=== PATIENT | male | born 1950 | race Caucasian/White ===

== ENCOUNTER 2023-11-14 09:43 | Outpatient (AMB) | payer BC, SELFPAY ==
--- NOTE | 2023-11-14 09:44 | MHC.OFFVIS ---
Vital Signs 11/14/23 09:47 Height 6 ft 3 in Weight 248 lb BMI 31.0 BP 140/70 H Blood Pressure Location Rt brachial Position Sitting Pulse 58 Pulse Source Pulse Oximeter Pulse Oximetry (%) 99 Oxygen Delivery Method Room Air Intake Visit Reasons: ENP-Restless leg syn/muscle twitching - CONF Intake Note: Patient presents for restless leg syndrome. patient has severe twitching and jerking when sitting down Allergies cholecalciferol (vitamin D3) [From Vitamin D3] Allergy (Mild, Verified 11/14/23 09:49) itching Medication List - Last Reconciled 11/14/23 by Stephanie Littlejohn, JAMES albuterol sulfate 90 mcg/actuation 2 puffs inhalation Q6H PRN amlodipine 10 mg PO DAILY cyclobenzaprine 5 mg PO BEDTIME diclofenac sodium 1% (Aleve (diclofenac)) 4 grams topical QID ezetimibe 10 mg PO DAILY hydroxyzine HCl 10 mg PO BEDTIME ibuprofen 800 mg PO Q8H multivitamin 1 tab PO DAILY omeprazole 20 mg PO DAILY ropinirole 1 mg PO BID HPI Comments Details: Right-handed 73-yr-old male presents for neurological evaluation of RLS w/ ? of peripheral neuropathy. Pt is accompanied by his , Meeta. He has had bilateral ankle pain since his 20s. He has very limited ankle ROM. He was tried on Indocin in the past which helped but then this was switched to Ibuprofen. Last yr, he was diagnosed w/ a left ankle MRSA infection- was tx'd w/ course of ABT. He recently retried indocin, but this made him feel very strange and he was switched back to Ibuprofen. Ortho offered ankle fusion, however could not guarantee the pain would resolve. He has a rheumatology consult on 11/29 at [facility]. He has had muscle spasms in the upper inner thighs his whole life. More recently, he has started to have cramps in the calves as well. The cramps occur at rest. Can be triggered by dehydration or increased activity- such as hiking and then sitting down. He previously used quinine, but since quinine 30 yrs ago, became unavailable he started taking OTC Burt leg cramps prn, which helps. (Active Ingredients: Cinchona Officinalis 3X HPUS, Aconitum Napellus 6X HPUS, Gnaphalium Polycephalum 3X HPUS, Ledum Palustre 6X HPUS, Magnesia Phosphorica 6X HPUS, Rhus Toxicodendron 6X HPUS, Viscum Album 3X HPUS). In the past, tried prn Tizanidine, vinegar, mustard, pickle juice- but did not really help. He has always been very active, not prone to sit down for long. He has urge to move, cannot sit still for more than 10-15 minutes- this is more so in the last 3-4 yrs. Then about a year ago, he started having episodes of feeling an electrical shock causing an involuntary leg and now upper body jerking. He can feel creepy crawling sensation across his shoulders. Sometimes his hands carmp at rest. This always occurs at rest, more so in the evening after 7pm, but worse after bedtime. He started ropinirole 2mg an hr before bed, which helps to reduce the jerking motion. However, if he does not fall asleep right away, then he cannot stay laying down in the bed and has to get up and move. Uses Tizanidine prn for back spasms (different from the leg cramps)- helps the back, but not the legs. Tried Gabapentin 100mg qhs- did not tolerate, made him feel weird. He has not tried weighted blanket- worried about his claustrophobia- cannot even watch a movie where someone someone is locked in a closet. He does have milder sleep apnea, but could not tolerate the CPAP mask as he is claustrophobic and has to get up and move. Has difficulties on long plane rides. He can drive longer distances, but does not tolerate being a passenger. Occasionally may have non-radiating low back muscle spasm. He has always been prone to brief lightheadedness after bending over and standing back up. Generally very active- he is currently putting up delacruz/sheet rock. He may talk in his sleep/chatter/chuckle, may swing/push his arms (put does not punch), and once when in [place]- he jumped out of bed and pointed at the floor stating I told you not to do that (this was 3-4 yrs ago, was tired and frustrated before going to bed). States memory is ok, some forgetfulness. Denies numbness, focal weakness (feels overall not a strong as before- can carry 1 sheet of sheet rock not 2), peripheral skin changes, swelling, gait changes, falls, fasciculations, dysphagia, vision changes, tremors, neck pain, h/o compulsive behaviors. Pt reports his father and all his brothers have severe leg cramps at rest as well. His father passed a long time ago- so does not know if his father had jerking motions. None of his brother's have the jerking movements- pt is the oldest. All of his family is very active like he is. 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 [facility] Medical History (Updated 11/14/23 @ 12:21 by JAMES Lima) Joint pain Osteoarthritis Wheezing Diverticulosis of colon H/O esophageal reflux Squamous cell carcinoma of scalp Mitral regurgitation Erectile dysfunction Fatigue Anxiety disorder Skin cancer MARGOTH (obstructive sleep apnea) Peripheral polyneuropathy Restless leg syndrome Surgical History H/O arthroscopy of knee Hx of tonsillectomy Hx of colonoscopy Family History Mother Lung cancer Breast cancer in female Sister Breast cancer in female Social History Alcohol intake: never Patient Tobacco Use Status: Never used Tobacco Review of Systems Const All systems reviewed & are unremarkable except as noted in HPI and below Physical Exam Vital Signs: Last Vital Signs Pulse 58 11/14/23 09:47 BP 140/70 H 11/14/23 09:47 Pulse Ox 99 11/14/23 09:47 Oxygen Delivery Method Room Air 11/14/23 09:47 BMI result Body Mass Index 31.0 Const General: cooperative and no acute distress Orientation/consciousness: patient oriented x3 HEENT Other: Mallampati stage IV w/ acquired absence of tonsils and uvula. Head: Yes normocephalic Resp Effort & Inspection: normal respiratory effort and able to speak in complete sentences Neuro Other: Mild visible left forearm extensor muscle activation at rest- resolved w/ movement. Distal sensation intact No tremor. Finger-nose intact. BUE JANETT initially had poor fluidity, but improved upon pt initiated repeat Mild BUE, more so on right, tightness FFM intact Decreased BLE ankle dorsiflexion, more so on right, w/ alex decreased foot taps. Good stride, steady gait General: patient oriented x3, CN's II-XI intact bilaterally and deep tendon reflexes 2+ bilaterally Gait exam (Neuro): Normal gait present Motor exam (neuro): 5/5 motor strength present throughout Deep tendon reflexes (DTR's): Right triceps reflex intensity grade: 2+, Left triceps reflex intensity grade: 2+, Rt Biceps (C5, C6): 2+, Left biceps reflex intensity grade: 2+, Right brachioradialis reflex intensity grade: 2+, Left brachioradialis reflex intensity grade: 2+, Right patellar reflex intensity grade: 2+ and Left patellar reflex intensity grade: 2+ Psych Appearance: grossly normal Mental Status: mental status grossly normal Speech and movement: Normal speech and movement present Affect: normal affect Attitude: cooperative Thought process: Normal thought process present Thought content: Normal thought content present Insight: Good insight present (Psych) Assessment & Plan Assessment & Plan (1) Restless leg syndrome: Code(s): G25.81 - Restless legs syndrome Category: Medical (2) Muscle spasm: Code(s): M62.838 - Other muscle spasm Category: Medical (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 early s/s of neurodegenerative process though no current tremor, gait changes, significant cognitive changes. Code(s): G47.50 - Parasomnia, unspecified Category: Medical Plan Pt has life long h/o cramps, restless leg s/s, which have exacerbated in the last year following increased ankle pain and left ankle infection. He does have family hx c/w RLS. Pt advised to undergo work-up to assess for common etiologies of worsening RLS s/s and involuntary jerking movements: Labs for common etiologies BUE and BLE EMG/NCS Add Ropinirole IR 0.25mg tab- 1-3 tabs q evening between 6-8pm Continue Ropinirole 2mg qhs May continue OTC Burt leg cramps prn Reviewed common s/e's, such as OH, drowsiness, compulsive behaviors. Continue fluids. Trial adding stretching exercises. Rheumatology consult as scheduled. Future considerations- in-lab PSG, head imaging. Orders: Orders NE electromyogram (EMG) Today F41.9 - Anxiety disorder, unspecified, G25.81 - Restless legs syndrome, M62.838 - Other muscle spasm, R53.83 - Other fatigue NE nerve conduction velocity Today F41.9 - Anxiety disorder, unspecified, G25.81 - Restless legs syndrome, M62.838 - Other muscle spasm, R53.83 - Other fatigue Complete Blood Count Auto Diff Today F41.9 - Anxiety disorder, unspecified, G25.81 - Restless legs syndrome, M19.90 - Unspecified osteoarthritis, unspecified site, M25.50 - Pain in unspecified joint, M62.838 - Other muscle spasm, R53.83 - Other fatigue Ferritin Today F41.9 - Anxiety disorder, unspecified, G25.81 - Restless legs syndrome, M19.90 - Unspecified osteoarthritis, unspecified site, M25.50 - Pain in unspecified joint, M62.838 - Other muscle spasm, R53.83 - Other fatigue Erythrocyte Sedimentation Rate Today F41.9 - Anxiety disorder, unspecified, G25.81 - Restless legs syndrome, M19.90 - Unspecified osteoarthritis, unspecified site, M25.50 - Pain in unspecified joint, M62.838 - Other muscle spasm, R53.83 - Other fatigue TSH reflex Free T4 Today F41.9 - Anxiety disorder, unspecified, G25.81 - Restless legs syndrome, M19.90 - Unspecified osteoarthritis, unspecified site, M25.50 - Pain in unspecified joint, M62.838 - Other muscle spasm, R53.83 - Other fatigue Vitamin B12 and Folate Today F41.9 - Anxiety disorder, unspecified, G25.81 - Restless legs syndrome, M19.90 - Unspecified osteoarthritis, unspecified site, M25.50 - Pain in unspecified joint, M62.838 - Other muscle spasm, R53.83 - Other fatigue Vitamin D 25-OH (D2 and D3) Today F41.9 - Anxiety disorder, unspecified, G25.81 - Restless legs syndrome, M19.90 - Unspecified osteoarthritis, unspecified site, M25.50 - Pain in unspecified joint, M62.838 - Other muscle spasm, R53.83 - Other fatigue IRON PROFILE Today F41.9 - Anxiety disorder, unspecified, G25.81 - Restless legs syndrome, M19.90 - Unspecified osteoarthritis, unspecified site, M25.50 - Pain in unspecified joint, M62.838 - Other muscle spasm, R53.83 - Other fatigue Magnesium Today F41.9 - Anxiety disorder, unspecified, G25.81 - Restless legs syndrome, M19.90 - Unspecified osteoarthritis, unspecified site, M25.50 - Pain in unspecified joint, M62.838 - Other muscle spasm, R53.83 - Other fatigue Comprehensive Met. Panel Today F41.9 - Anxiety disorder, unspecified, G25.81 - Restless legs syndrome, M19.90 - Unspecified osteoarthritis, unspecified site, M25.50 - Pain in unspecified joint, M62.838 - Other muscle spasm, R53.83 - Other fatigue Creatine Kinase Total Today F41.9 - Anxiety disorder, unspecified, G25.81 - Restless legs syndrome, M19.90 - Unspecified osteoarthritis, unspecified site, M25.50 - Pain in unspecified joint, M62.838 - Other muscle spasm, R53.83 - Other fatigue CRP High Sensitivity Today F41.9 - Anxiety disorder, unspecified, G25.81 - Restless legs syndrome, M19.90 - Unspecified osteoarthritis, unspecified site, M25.50 - Pain in unspecified joint, M62.838 - Other muscle spasm, R53.83 - Other fatigue ASHIA Reflex Titer and Pattern Today F41.9 - Anxiety disorder, unspecified, G25.81 - Restless legs syndrome, M19.90 - Unspecified osteoarthritis, unspecified site, M25.50 - Pain in unspecified joint, M62.838 - Other muscle spasm, R53.83 - Other fatigue Rheumatoid Factor Today F41.9 - Anxiety disorder, unspecified, G25.81 - Restless legs syndrome, M19.90 - Unspecified osteoarthritis, unspecified site, M25.50 - Pain in unspecified joint, M62.838 - Other muscle spasm, R53.83 - Other fatigue Medications: New ropinirole between 6-8pm 0.25 - 0.75 mg (1 - 3 x 0.25 mg) PO DAILY 30 days 90 tabs 3RF G25.81 - Restless legs syndrome Coding Level of Care Code New Pt Level 4 (93631) Diagnoses Restless leg syndrome G25.81 Muscle spasm M62.838 Parasomnia G47.50
[2023-11-14 09:47] VITALS: BP 140/70; PULSE 58; O2SAT 99; BMI 31.0
== END 2023-11-14 11:15 | disposition home or self-care (01) ==
PROVIDERS: PCP Internal Medicine; Visit Provider Nurse Practitioner Family
DX: G25.81 Restless legs syndrome (principal); M62.838 Other muscle spasm; G47.50 Parasomnia, unspecified
CPT/HCPCS: 99204

== ENCOUNTER → 2023-11-14 09:43 | Outpatient (BNVA) | payer BC, SELFPAY | PROVIDERS: PCP Internal Medicine; Visit Provider Nurse Practitioner Family ==

== ENCOUNTER 2023-12-19 14:19 | Outpatient (REF) | payer BC, SELFPAY ==
--- NOTE | 2023-12-19 14:27 | EMG_ITS ---
Chief complaint: Patient reports some sort of muscle hyper excitability, described as twitching that starts on the right foot and spreads throughout his body. This has been ongoing for the last 2 years only. Denies any developmental delay or difficulties during childhood. Denies any proximal or distal weakness. Denies numbness. No atrophy seen. Patient reported feeling muscle stiffness/cramps during exam mainly on right buttocks and leg. No fasciculations seen. Reason for referral: Evaluate for myopathy Referred by: Stephanie Littlejohn NP Procedure done: Upper and lower extremities NCS/EMG Precautions and/or limitations: None The limb temperature was monitored continuously and remained between 32-36 degrees C during the performance of the NCS. Nerve Conduction Studies Anti Sensory Summary Table ?Stim Site NR Onset (ms) Norm Onset (ms) Peak (ms) Norm Peak (ms) O-P Amp (?V) Norm O-P Amp Site1 Site2 Delta-0 (ms) Dist (cm) Sam (m/s) Norm Sam (m/s) Right Median Anti Sensory (2nd Digit) Wrist ? 2.9 3.6 <3.6 12.9 >10 Wrist 2nd Digit 2.9 14.0 48 Right Radial Anti Sensory (Thumb) Forearm ? 1.6 2.3 <3.1 10.8 Forearm Thumb 1.6 0.0 Left Sural Anti Sensory (Lat Mall) Calf NR <4.0 >5.0 Calf Lat Mall 14.0 Right Sural Anti Sensory (Lat Mall) Calf NR <4.0 >5.0 Calf Lat Mall 14.0 Right Ulnar Anti Sensory (5th Digit) Wrist ? 2.5 3.5 <3.7 14.7 >15.0 Wrist 5th Digit 2.5 14.0 56 Motor Summary Table ?Stim Site NR Onset (ms) Norm Onset (ms) O-P Amp (mV) Norm O-P Amp iAmp (mV) Amp (1st) (%) Site1 Site2 Delta-0 (ms) Dist (cm) Sam (m/s) Norm Sam (m/s) Right Median Motor (Abd Poll Brev) Wrist ? 4.9 <3.9 4.9 >4.5 6.0 100.0 Elbow Wrist 5.2 27.0 52 >45 Elbow ? 10.1 4.4 5.2 89.8 Right Peroneal Motor (Ext Dig Brev) Ankle ? 4.7 <4.0 1.2 >2.5 1.3 100.0 Ankle Ext Dig Brev 4.7 0.0 B Fib ? 13.4 1.5 1.8 125.0 B Fib Ankle 8.7 36.0 41 >40 Poplt ? 14.7 1.5 1.8 125.0 Poplt B Fib 1.3 6.0 46 >40 Left Tibial Motor (Abd Johns Brev) Ankle ? 4.8 <5 1.6 >2.5 1.7 100.0 Ankle Abd Johns Brev 4.8 0.0 Knee ? 16.0 2.0 2.3 125.0 Knee Ankle 11.2 45.0 40 >40 Right Tibial Motor (Abd Johns Brev) Ankle ? 5.7 <5 1.3 >2.5 1.4 100.0 Ankle Abd Johns Brev 5.7 0.0 Knee ? 17.1 0.5 0.6 38.5 Knee Ankle 11.4 47.0 41 >40 Right Ulnar Motor (Abd Dig Minimi) Wrist ? 3.1 <3.0 8.1 >5 11.1 100.0 B Elbow Wrist 4.3 24.0 56 >45 B Elbow ? 7.4 7.8 11.0 96.3 A Elbow B Elbow 2.0 10.0 50 >45 A Elbow ? 9.4 7.3 10.3 90.1 EMG ?Side Muscle Nerve Root Ins Act Fibs Psw Amp Dur Poly Recrt Int Pat Comment Right 1stDorInt Ulnar C8-T1 Nml Nml Nml Nml Nml 0 Nml Complete Right FlexCarRad Median C6-7 Nml Nml Nml Nml Nml 0 Nml Complete Right Biceps Musculocut C5-6 Nml Nml Nml Nml Nml 0 Nml Complete Right Triceps Radial C6-7-8 Nml Nml Nml Nml Nml 0 Nml Complete Right Deltoid Axillary C5-6 Nml Nml Nml Nml Nml 0 Nml Complete Right AbdHallucis MedPlantar S1-2 Nml Nml Nml Nml Nml 0 Nml Complete Right AntTibialis Dp Br Peron L4-5 Nml Nml Nml Nml Nml 0 Nml Complete Right MedGastroc Tibial S1-2 Nml Nml Nml Nml Nml 0 Nml Complete Right VastusMed Femoral L2-4 Nml Nml Nml Nml Nml 0 Nml Complete Right GluteusMed SupGluteal L4-S1 Nml Nml Nml Nml Nml 0 Nml Complete Left AbdHallucis MedPlantar S1-2 Incr Nml 1+ Nml Nml 0 Nml Complete Left AntTibialis Dp Br Peron L4-5 Nml Nml Nml Nml Nml 0 Nml Complete Left MedGastroc Tibial S1-2 Incr Nml 1+ Nml Nml 0 Nml Complete Left VastusMed Femoral L2-4 Nml Nml Nml Nml Nml 0 Nml Complete Paraspinal EMG ?Side Muscle Nerve Root Ins Act Fibs Psw Comment Right Cervical Upper Rami Nml Nml Nml Right Cervical Mid Rami Incr Nml Nml Myotonic discharge Right Cervical Lower Rami Nml Nml Nml Right Lumbar Upper Rami Nml Nml Nml Right Lumbar Mid Rami Nml Nml Nml Right Lumbar Lower Rami Nml Nml Nml Left Lumbar Upper Rami Nml Nml Nml Left Lumbar Mid Rami Nml Nml Nml Left Lumbar Lower Rami Nml Nml Nml FINDINGS: Right peroneal nerve showed prolonged distal latency, small amplitude and normal conduction velocity. Note that he has flat feet with flat EDB muscle. Right tibial nerve showed prolonged distal latency, small amplitude and normal conduction velocity. Left tibial nerve showed normal distal latency, small amplitude and normal conduction velocity. Bilateral sural nerves absent response. Right median motor nerve showed prolonged distal latency, normal amplitude and normal conduction velocity. Right ulnar motor nerve showed mildly prolonged distal latency, normal amplitude and normal conduction velocity. All other nerves tested were within normal. Concentric needle EMG was performed in selected muscles of the bilateral lower extremities, right upper extremity, lumbar paraspinals and cervical paraspinals. Study revealed signs of electric abnormalities as shown in the table above. Myoclonic discharges seen in right mid cervical paraspinals. Increased insertional activity and PSWs seen on left medial gastrocnemius and right AH. IMPRESSION: 1. This is an abnormal study. 2. Needle EMG showed isolated myotonic-like discharges on right mid cervical paraspinals, and PSWs on left medial gastrocnemius and AH muscles. NCS showed low CMAP amplitudes with normal/mildly prolonged distal latencies. Abnormalities primarily seen on motor nerves tested rather than sensory. Although both sural nerves showed absent response. 3. Although myotonic discharges are nonspecific and can be seen in many disorders, including myotonic dystrophy, inflammatory myopathies, hypothyroidism, drug-induced myopathies and even some inherited myopathies, the presence of myotonic discharges specifically in paraspinals highly suggest acid maltase deficiency/Pompe disease. CLINICAL COMMENT: Further clinical correlation and evaluation recommended. Consider workup for Pompe disease and myopathy. If muscle biopsy to be done, can be done where needle EMG was not performed, i.e. left upper extremity. Thank you for your kind referral. Nyla Majano MD, KALI Board Certified, [place] [employer] and Rehabilitation (ABPMR) Board Certified, [place] Board of Electrodiagnostic Medicine (ABEM) CODIN [phone] x 3 MTDD
== END 2023-12-19 14:20 | disposition home or self-care (01) ==
LOC: HO.NEURO 14:19
PROVIDERS: PCP Internal Medicine; Visit Provider Nurse Practitioner Family
DX: M62.838 Other muscle spasm (principal); G25.81 Restless legs syndrome; F41.9 Anxiety disorder, unspecified; R53.83 Other fatigue
CPT/HCPCS: 95886; 95911

== ENCOUNTER → 2023-12-19 14:27 | Outpatient (BNV) | payer BC, SELFPAY | PROVIDERS: PCP Internal Medicine; Visit Provider Physical Medicine & Rehabilitation | DX: R25.3 Fasciculation (principal); M62.838 Other muscle spasm | CPT/HCPCS: 95886; 95911 ==

== ENCOUNTER 2024-01-25 09:14 | Outpatient (AMB) | payer BC, SELFPAY ==
--- NOTE | 2024-01-25 09:20 | MHC.OFFVIS ---
Vital Signs 01/25/24 09:31 Height 6 ft 3 in Weight 249 lb BMI 31.1 BP 155/73 H Blood Pressure Location Lt brachial Position Sitting Pulse 62 Intake Visit Reasons: Myopathy muscle bx Intake Note: Patient is seen in office for myopathy muscle biopsy. Pt c/o: arthritis in the ankle, muscle spasm all his life, involuntary movements starts at foot radiates to back and shoulder for couple yrs now, had nerve test done Stem Assembler Required: No Accompanied by: Family/Other Allergies cholecalciferol (vitamin D3) [From Vitamin D3] Allergy (Mild, Verified 01/25/24 09:29) itching HPI Comments Details: 73-year-old male patient presenting for evaluation of a possible muscle biopsy. He reports excessive twitching especially in the right foot which spreads throughout his body and has developed over the past 2 years. He had a prior history of muscle cramps for which he takes quinine and restless legs syndrome. He denies numbness or muscle weakness. He does have sharp pain in the right buttock after having a an EMG. An EMG performed on 12/19/2023 revealed myotonic like discharge is on right mid cervical paraspinals. ?Although myotonic discharges are nonspecific and can be seen in many disorders, including myotonic dystrophy, inflammatory myopathies, hypothyroidism, drug-induced myopathies and even some inherited myopathies, the presence of myotonic discharges specifically and paraspinals highly suggest acid maltase deficiency/Pompe disease.? He is most symptomatic in the right inner thigh. Muscle biopsy is recommended where needle EMG was not performed i.e. left upper extremity. [facility] Medical History Joint pain Osteoarthritis Wheezing Diverticulosis of colon H/O esophageal reflux Squamous cell carcinoma of scalp Mitral regurgitation Erectile dysfunction Fatigue Anxiety disorder Skin cancer MARGOTH (obstructive sleep apnea) Peripheral polyneuropathy Restless leg syndrome Surgical History H/O arthroscopy of knee Hx of tonsillectomy Hx of colonoscopy Family History Mother Lung cancer Breast cancer in female Sister Breast cancer in female Social History Alcohol intake: never Patient Tobacco Use Status: Never used Tobacco Review of Systems Const All systems reviewed & are unremarkable except as noted in HPI and below Denies chills, Denies fever(s), Denies headache(s), Denies poor appetite and Denies weakness ENT Denies headache(s) Card Denies chest pain, Denies irregular heart rhythm, Denies palpitations and Denies dyspnea Resp Denies cough, Denies excessive phlegm production and Denies dyspnea GI Denies abdominal pain, Denies bloating, Denies change in bowel habits, Denies constipation, Denies heartburn, Denies diarrhea, Denies nausea and Denies vomiting Denies difficulty urinating and Denies urinary frequency Musc Denies back pain, Reports arthralgias, Denies muscle weakness and Denies numbness Skin/Breast Denies changing lesions and Denies unusual bruising Neuro Denies headache(s), Denies numbness, Reports restless legs, Denies paresthesias and Denies weakness Psych Denies anxiety and Denies depression Endo Denies palpitations Kavin/Lymph Denies lymphadenopathy Physical Exam Const General: cooperative and no acute distress Nutritional Appearance: well nourished Orientation/consciousness: patient oriented x3 Limitations: no limitations HEENT Head: Yes normocephalic and Yes atraumatic Ears: hearing grossly normal bilaterally Resp Effort & Inspection: normal respiratory effort, no audible wheezes, no cough and no respiratory distress Cardio Jugular venous distension: no JVD GI Inspection: Yes normal to inspection Skin Other: Warm, dry, no rash Neuro General: patient oriented x3 Extrem General: Yes no clubbing, cyanosis or edema Assessment & Plan Assessment & Plan (1) Myopathy: Code(s): G72.9 - Myopathy, unspecified Category: Medical Plan 73-year-old male patient with complaints of twitching in the lower extremity right side found to have an abnormal EMG. Muscle biopsy is recommended. Patient is most symptomatic in the right leg especially the thigh. I recommended performing muscle biopsy both of the left upper extremity and right lower extremity. After discussion of the procedure, risks, and alternatives, he consents to the surgery. This will be scheduled at his earliest convenience. Coding Level of Care Code New Pt Level 4 (92564) Diagnoses Myopathy G72.9
[2024-01-25 09:31] VITALS: BP 155/73; PULSE 62; BMI 31.1
== END 2024-01-25 09:48 | disposition home or self-care (01) ==
PROVIDERS: PCP Internal Medicine; Visit Provider Surgery
DX: G72.9 Myopathy, unspecified (principal)
CPT/HCPCS: 99204

== ENCOUNTER → 2024-01-25 09:14 | Outpatient (BNVA) | payer BC, SELFPAY | PROVIDERS: PCP Internal Medicine; Visit Provider Surgery ==

== ENCOUNTER 2024-02-27 05:50 | Day surgery (SDC) | payer MEDICARE, SELFPAY ==
[2024-02-25 09:20] VITALS: BMI 31.1
--- NOTE | 2024-02-26 08:44 | HO.ANESPROP2 ---
Documented by User: Joleen Michel NP 02/26/24 08:49 HPI - Anesthesia Eval Consult details Narrative: 73yo M for Muscle Biopsy Left Arm and Right Thigh Cardiac optimized. Follows [facility] for mild mitral insufficiency, mild AAA PMFSH Active Problems Active Problems: All Active Problems Myopathy (Acute) Parasomnia (Acute) Muscle spasm (Acute) Fatigue (Acute) Anxiety disorder (Acute) Restless leg syndrome (Acute) Past Medical History Medical History GERD (gastroesophageal reflux disease) MARGOTH (obstructive sleep apnea) Asthma Erectile dysfunction Mild mitral insufficiency Mild ascending aorta dilation Hyperlipidemia Hypertension Joint pain Osteoarthritis Wheezing Diverticulosis of colon H/O esophageal reflux Squamous cell carcinoma of scalp Mitral regurgitation Fatigue Anxiety disorder Skin cancer Peripheral polyneuropathy Restless leg syndrome Family History Family History Mother Lung cancer Breast cancer in female Sister Breast cancer in female Surgical History Surgical History H/O arthroscopy of knee Hx of tonsillectomy Hx of colonoscopy Social History Social History Alcohol intake: never Patient Tobacco Use Status: Never used Tobacco Have you been hit, kicked, punched, or otherwise hurt by someone within the past year? If so, by whom?: No Advance Directives: No Advance Directives Information Provided: Yes Nutrition Risks: No Nutritional Risk Meds Allergies Allergy/AdvReac Type Severity Reaction Status Date / Time cholecalciferol (vitamin D3) Allergy Mild itching Verified 01/25/24 09:29 [From Vitamin D3] Home Medications ?Medication ?Instructions ?Recorded ?Confirmed ?Last Taken ?Type albuterol sulfate 90 mcg/actuation 2 puff inhalation Q6H PRN sob 11/14/23 02/27/24 02/26/22 History aerosol inhaler amlodipine 10 mg tablet 10 mg PO DAILY 11/14/23 02/27/24 02/27/24 History cyclobenzaprine 5 mg tablet 5 mg PO BEDTIME 11/14/23 02/27/24 02/26/24 History ezetimibe 10 mg tablet 10 mg PO DAILY 11/14/23 02/27/24 02/26/24 History hydroxyzine HCl 10 mg tablet 10 mg PO BEDTIME 11/14/23 02/27/24 02/26/24 History multivitamin 1 tab PO DAILY 11/14/23 02/27/24 02/26/24 History omeprazole 20 mg capsule,delayed 20 mg PO DAILY 11/14/23 02/27/24 02/26/24 History release ropinirole 1 mg tablet 1 mg PO BID 11/14/23 02/27/24 02/26/24 History Exam Height,Weight and Vital Signs: Height 6 ft 3 in Weight 112.945 kg Pertinent Lab Results Pertinent Lab Results: CBC and BMP 09/2023 from outside facility WNL Narrative Narrative: ECHO 02/2024 LV mildly dilated LV sys function nml, EF 55-60% No regional WMA Mild concentric LVH RV cavity nml RV sys function nml Asc aorta dilated 3.9cm EKG 02/2024 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 Mod volt criteria for LVH Assessment and Plan Assessment Anesthesia Assessment: Chart Reviewed Documented by User: Malika Campos MD 02/27/24 07:47 PMFSH Past Medical History Medical History GERD (gastroesophageal reflux disease) MARGOTH (obstructive sleep apnea) Asthma Erectile dysfunction Mild mitral insufficiency Mild ascending aorta dilation Hyperlipidemia Hypertension Joint pain Osteoarthritis Wheezing Diverticulosis of colon H/O esophageal reflux Squamous cell carcinoma of scalp Mitral regurgitation Fatigue Anxiety disorder Skin cancer Peripheral polyneuropathy Restless leg syndrome Family History Family History Mother Lung cancer Breast cancer in female Sister Breast cancer in female Family history of problems with anesthesia: No Surgical History Surgical History H/O arthroscopy of knee Hx of tonsillectomy Hx of colonoscopy History of Problems with Anesthesia: No Social History Social History Alcohol intake: never Patient Tobacco Use Status: Never used Tobacco Have you been hit, kicked, punched, or otherwise hurt by someone within the past year? If so, by whom?: No Advance Directives: No Advance Directives Information Provided: Yes Nutrition Risks: No Nutritional Risk Meds Allergies Allergy/AdvReac Type Severity Reaction Status Date / Time cholecalciferol (vitamin D3) Allergy Mild itching Verified 01/25/24 09:29 [From Vitamin D3] Home Medications ?Medication ?Instructions ?Recorded ?Confirmed ?Last Taken ?Type albuterol sulfate 90 mcg/actuation 2 puff inhalation Q6H PRN sob 11/14/23 02/27/24 02/26/22 History aerosol inhaler amlodipine 10 mg tablet 10 mg PO DAILY 11/14/23 02/27/24 02/27/24 History cyclobenzaprine 5 mg tablet 5 mg PO BEDTIME 11/14/23 02/27/24 02/26/24 History ezetimibe 10 mg tablet 10 mg PO DAILY 11/14/23 02/27/24 02/26/24 History hydroxyzine HCl 10 mg tablet 10 mg PO BEDTIME 11/14/23 02/27/24 02/26/24 History multivitamin 1 tab PO DAILY 11/14/23 02/27/24 02/26/24 History omeprazole 20 mg capsule,delayed 20 mg PO DAILY 11/14/23 02/27/24 02/26/24 History release ropinirole 1 mg tablet 1 mg PO BID 11/14/23 02/27/24 02/26/24 History Exam Airway Mallampati Class: II TM Dist: >3cm Neck ROM: Full Heart: rrr Lungs: cta Assessment and Plan Assessment Anesthesia Assessment: Anesthesia Plan Discussed Final Anesthetic Review Family History of Problems with Anesthesia: No History of Problems with Anesthesia: No NPO: Yes ASA Class: III Final Preanesthetic Review: No Changes in Pt Med Stat, Meds/Allgs Chart Reviewed, Consent Obtained/Reviewed and Anes Risks/Benef Reviewed Patient Risk: Low Procedure Risk: Low Anesthetic Plan Anesthetic Plan: MAC: Disposition: Standard PACU
[2024-02-27 06:05] VITALS: BP 150/78; PULSE 74; RESP 18; TEMP 36.9; O2SAT 96; BMI 31.3
[2024-02-27] MEDS: Lactated Ringers 1,000 ML 100 ML IVCONT (06:58)
--- NOTE | 2024-02-27 07:29 | MHC.SHP ---
Pre-Procedural Eval Section A - 24 Hr Update-Section A only Date of Service: 02/27/24 The patient is an INPATIENT: No Changes since office visit: Yes Patient answered all questions; No Cold of Flu in the past 2 weeks, No New Medical Problems and No Changes in Medication The patient has been examined within 24 hours of the surgical procedure. The History & Physical has been completed within 30 days and I have reviewed it.: No Section B - Complete if H&P > 30 days Chief Complaint: Myopathy, unspecified Details of Present Illness: No change in symptoms Relevant Family History (Specify if Yes): No Relevant Social History: None Present Medications: see Short Stay Collaborative assessment Medical History: No relevant PMH History of Previous Operations: No relevant previous surgery Allergies: Allergies Allergy/AdvReac Type Severity Reaction Status Date / Time cholecalciferol (vitamin D3) Allergy Mild itching Verified 01/25/24 09:29 [From Vitamin D3] Review of Systems Sugical H&P ROS: Negative: Constitution, Cardiovascular, Respiratory, Neurological, Psychiatric, Hem-Onc, Allergic/Immunologic, Gastrointestinal, Genitourinary, Musculoskeletal, Integumentary, Endocrine and Eyes/Ears/Nose/Throat Exam Surgical H&P Exam: Normal: HEENT, Normal: Heart, Normal: Lungs, Normal: Extremities, Normal: Abdomen, Normal: Skin and Normal: Neurological Plan Diagnosis/Plan: Unchanged I have reviewed the history and physical and performed a pertinent physical examination on my patient. No changes have occurred unless specified. Time Spent With Patient Time: Total time managing care of this patient today ____ minutes.
--- NOTE | 2024-02-27 08:28 | P.OP_ITS ---
Operative Note Operative Note Date of Service: 02/27/24 Narrative: Preoperative diagnosis: Myopathy Postoperative diagnosis: Same Procedure: Muscle biopsy right thigh, left upper arm Surgeon: Mamadou Garrison MD Chassis Mechanic: Tami Otero PA-C Anesthesia: Mac plus local Indications for procedure: 73-year-old male patient presenting with complaints of twitching in the right leg suspected to have a myopathy. He presents today for muscle biopsy. Operative findings: Normal appearing muscle at both the left upper arm and right inner thigh Specimen: Muscle biopsy left upper arm and right upper inner thigh Estimated blood loss: 2 mL Complications: None Procedure details: Patient was brought to the OR and placed in a supine position. After administering light sedation the patient's left upper arm and right inner thigh was prepped with ChloraPrep and draped in a sterile fashion. A surgical time-out was called the consent confirmed. Patient received preoperative antibiotics and Venodyne boots were in place. Local anesthesia was infiltrated over the lateral right upper arm over the triceps. Incision was then made longitudinally carried out through subcutaneous tissue, through the fascia up to the muscle belly. A segment of muscle was isolated using a hemostat and cut using a Metzenbaum scissors. This was placed in a muscle biopsy clamp and sent fresh to pathology for further examination. Fascia was then reapproximated using interrupted 3-0 Polysorb sutures. Attention was then directed to the upper inner thigh right side were again local anesthesia was infiltrated in longitudinal fashion. A longitudinal incision was then made carried out through subcutaneous tissue up to the muscle fascia. This was then incised with a scalpel. Muscle belly was then exposed. A segment of muscle was isolated similar to the previous biopsy. This was cut with the Metzenbaum scissors and placed in a muscle biopsy clamp. Wounds were then checked for hemostasis. Muscle fascia was then closed using interrupted 3-0 Polysorb sutures. Dermis was reapproximated in both incisions using interrupted 3-0 Polysorb sutures. Skin was closed using a running subcuticular 4-0 Polysorb suture. Sterile dressings consisting of Steri-Strips, 2 x 2 gauze and Tegaderm were then applied. The patient tolerated the procedure well. Sponge, instrument, and needle counts reported as correct. The patient was transferred to PACU in stable condition.
[2024-02-27 08:34] VITALS: BP 125/66; PULSE 75; RESP 16; TEMP 36.8; O2SAT 98
[2024-02-27 08:49] VITALS: BP 141/76; PULSE 65; RESP 16; O2SAT 97
[2024-02-27 09:05] VITALS: BP 134/71; PULSE 56; RESP 16; TEMP 36.9; O2SAT 99
== END 2024-02-27 09:30 | disposition home or self-care (01) ==
PROVIDERS: Visit Provider Surgery
PROC: (CPT 20205; principal; 2024-02-27 07:30)
DX: G72.9 Myopathy, unspecified (principal); M62.838 Other muscle spasm; G25.81 Restless legs syndrome; G62.9 Polyneuropathy, unspecified; R53.83 Other fatigue; C44.42 Squamous cell carcinoma of skin of scalp and neck; G47.33 Obstructive sleep apnea (adult) (pediatric); J45.909 Unspecified asthma, uncomplicated; I10 Essential (primary) hypertension; E78.5 Hyperlipidemia, unspecified; F41.9 Anxiety disorder, unspecified; Z79.899 Other long term (current) drug therapy; Z88.8 Allergy status to other drugs, medicaments and biological substances
CPT/HCPCS: 20205 ×2; 88300; 88305; 88313; 88319; 88348; J0690; J2003; J2405; J2704; J2795; J3010

== ENCOUNTER → 2024-02-27 05:50 | Outpatient (BNV) | payer MEDICARE, SELFPAY | PROVIDERS: Visit Provider Surgery | DX: G72.9 Myopathy, unspecified (principal) | CPT/HCPCS: 20205 ==

== ENCOUNTER 2024-03-07 10:32 | Outpatient (AMB) | payer BC, SELFPAY ==
--- NOTE | 2024-03-07 10:55 | MHC.OFFVIS ---
Vital Signs 03/07/24 11:01 Height 6 ft 3 in Weight 249 lb 1.957 oz BMI 31.1 Pulse 60 Intake Visit Reasons: s/p muscle biopsy left arm, rt thigh Intake Note: Patient is seen in office for post op assessment post muscle biopsy right thigh, left upper arm. Pt c/o: admits to sore and bruise all over the right leg surgery:02/27/24 [employer] Required: No Accompanied by: Spouse Allergies cholecalciferol (vitamin D3) [From Vitamin D3] Allergy (Mild, Verified 03/07/24 11:03) itching HPI Comments Details: 73-year-old male patient returning following muscle biopsy of right medial calf and left upper arm for evaluation of a possible myopathy. He reports swelling in the right leg wound with extensive bruising down the leg but denies any significant swelling or bruising in the left arm. Pathology revealed normal muscle at both the biopsy sites. A copy of the report was provided to the patient. [facility] Medical History GERD (gastroesophageal reflux disease) MARGOTH (obstructive sleep apnea) Asthma Erectile dysfunction Mild mitral insufficiency Mild ascending aorta dilation Hyperlipidemia Hypertension Joint pain Osteoarthritis Wheezing Diverticulosis of colon H/O esophageal reflux Squamous cell carcinoma of scalp Mitral regurgitation Fatigue Anxiety disorder Skin cancer Peripheral polyneuropathy Restless leg syndrome Surgical History History of biopsy (02/27/24) H/O arthroscopy of knee Hx of tonsillectomy Hx of colonoscopy Family History Mother Lung cancer Breast cancer in female Sister Breast cancer in female Social History Alcohol intake: never Patient Tobacco Use Status: Never used Tobacco Physical Exam Vital Signs: Last Vital Signs Pulse 60 03/07/24 11:01 BMI result Body Mass Index 31.1 Const General: no acute distress Nutritional Appearance: well nourished Orientation/consciousness: patient oriented x3 Resp Effort & Inspection: normal respiratory effort, no audible wheezes, no cough and no respiratory distress Neuro General: patient oriented x3 Extrem Other: Left arm wound clean, dry, and intact without hematoma or seroma. Right upper inner thigh with a subcutaneous hematoma apparent with no significant skin changes noted. Ecchymosis noted extending down the posterior and distal leg. No evidence of infection. Upper/lower leg/hip images: 1. Area of hematoma Assessment & Plan Assessment & Plan (1) Myopathy: Code(s): G72.9 - Myopathy, unspecified Category: Medical Plan 73-year-old male patient presenting with possible myopathy status post muscle biopsy x2. Pathology from [facility] revealed no abnormalities in either muscle biopsy. The patient tolerated the procedure well and his wounds are healing nicely. There is a small hematoma residual in the right leg which will resolve spontaneously. He should follow up as needed. Coding Level of Care Code Global (45299) Diagnoses Myopathy G72.9
[2024-03-07 11:01] VITALS: PULSE 60; BMI 31.1
== END 2024-03-07 11:17 | disposition home or self-care (01) ==
PROVIDERS: PCP Internal Medicine; Visit Provider Surgery
DX: G72.9 Myopathy, unspecified (principal)
CPT/HCPCS: 99213

== ENCOUNTER 2024-05-27 11:12 | Outpatient (AMB) | payer BC, SELFPAY ==
--- NOTE | 2024-05-27 11:24 | A.OFFVIS_ITS ---
Vital Signs 05/27/24 11:24 05/27/24 11:33 Height 63 ft 6 ft 3 in Weight 251 lb 250 lb BMI 0.3 31.2 BP 142/60 H Blood Pressure Location Rt brachial Position Sitting Pulse 80 Pulse Source Pulse Oximeter Pulse Oximetry (%) 96 Oxygen Delivery Method Room Air Intake Visit Reasons: 6mo F/U Intake Note: Patient presents follow up RLS. EMG in chart/Labs not done Assembly Inspector Helper Required: No Allergies cholecalciferol (vitamin D3) [From Vitamin D3] Allergy (Mild, Verified 03/07/24 11:03) itching Medication List - Last Reconciled 05/27/24 by Stephanie Littlejohn, DIRECTOR OF PARKS AND RECREATION albuterol sulfate 90 mcg/actuation 2 puffs inhalation Q6H PRN amlodipine 5 mg PO DAILY aspirin 81 mg PO DAILY cyclobenzaprine 5 mg PO BEDTIME diclofenac sodium 75 mg PO BID ezetimibe 10 mg PO DAILY hydroxyzine HCl 10 mg PO BEDTIME losartan 25 mg PO DAILY multivitamin 1 tab PO DAILY omeprazole 20 mg PO DAILY ropinirole 1 mg PO BID ropinirole 0.25 - 0.75 mg (1 - 3 x 0.25 mg) PO DAILY 30 days ticagrelor (Brilinta) 90 mg PO BID HPI Comments Details: The patient is a 73-year-old right-handed male presenting with neuropathy symptoms and restless legs syndrome. He experienced a myocardial infarction that required intervention with coronary stents in April and has since been partaking in cardiac rehabilitation. His CV medication regimen was optimized, he is now on Brilinta. Note, patient continues on diclofenac states he was not advise to hold this. He has an appointment Sunday with cardiology- I advised him to discuss if he can continue to take these concomitantly with cardiology. Since the last visit, patient underwent BUE/BLE EMG/ NCS which was abnormal- which showed isolated myotonic like discharges on right mid cervical paraspinals and PSWs on left medial gastrocnemius and AH muscles. NCS showed low CMAP amplitudes with normal/mildly prolonged distal latencies. Abnormalities primarily seen on motor nerves tested rather than sensory- though both sural nerves showed absent response. Performing screen printing paster recommended patient undergo follow-up muscle biopsy to rule out myopathic process. Muscle biopsy ruled out inflammatory or autoimmune causes. He notes particular sensitivity at the biopsy site, which has improved over time. He states that he did do the blood work that we previously ordered, however I do not have these results today. We will request them. He describes his neuropathy involves significant concerns about jerking leg movements and soreness would start in the feet and move up the body, more so on the right side. These symptoms occur predominantly post-supper in the evenings, which interfere with rest. for instance, he often needs to stand while watching TV in the evening. He may occasionally have these symptoms earlier day when at rest. These symptoms are partially managed with the added doses of ropinirole, although it does not fully alleviate them. He did see Rheumatology, who did not feel his symptoms were rheumatological, although he does have osteoarthritis. Rheumatology suggested he discuss with us trialing gabapentin or pregabalin. Patient reports he has previously tried gabapentin without success due to side effects and is considering pregabalin as an alternate option for symptom management. 11/14/2023. Right-handed 73-yr-old male presents for neurological evaluation of RLS w/ ? of peripheral neuropathy. Pt is accompanied by his , Meeta. He has had bilateral ankle pain since his 20s. He has very limited ankle ROM. He was tried on Indocin in the past which helped but then this was switched to Ibuprofen. Last yr, he was diagnosed w/ a left ankle MRSA infection- was tx'd w/ course of ABT. He recently retried indocin, but this made him feel very strange and he was switched back to Ibuprofen. Ortho offered ankle fusion, however could not guarantee the pain would resolve. He has a rheumatology consult on 11/29 at [facility]. He has had muscle spasms in the upper inner thighs his whole life. More recently, he has started to have cramps in the calves as well. The cramps occur at rest. Can be triggered by dehydration or increased activity- such as hiking and then sitting down. He previously used quinine, but since quinine 30 yrs ago, became unavailable he started taking OTC [place] leg cramps prn, which helps. (Active Ingredients: Cinchona Officinalis 3X HPUS, Aconitum Napellus 6X HPUS, Gnaphalium Polycephalum 3X HPUS, Ledum Palustre 6X HPUS, Magnesia Phosphorica 6X HPUS, Rhus Toxicodendron 6X HPUS, Viscum Album 3X HPUS). In the past, tried prn Tizanidine, vinegar, mustard, pickle juice- but did not really help. He has always been very active, not prone to sit down for long. He has urge to move, cannot sit still for more than 10-15 minutes- this is more so in the last 3-4 yrs. Then about a year ago, he started having episodes of feeling an electrical shock causing an involuntary leg and now upper body jerking. He can feel creepy crawling sensation across his shoulders. Sometimes his hands carmp at rest. This always occurs at rest, more so in the evening after 7pm, but worse after bedtime. He started ropinirole 2mg an hr before bed, which helps to reduce the jerking motion. However, if he does not fall asleep right away, then he cannot stay laying down in the bed and has to get up and move. Uses Tizanidine prn for back spasms (different from the leg cramps)- helps the back, but not the legs. Tried Gabapentin 100mg qhs- did not tolerate, made him feel weird. He has not tried weighted blanket- worried about his claustrophobia- cannot even watch a movie where someone someone is locked in a closet. He does have milder sleep apnea, but could not tolerate the CPAP mask as he is claustrophobic and has to get up and move. Has difficulties on long plane rides. He can drive longer distances, but does not tolerate being a passenger. Occasionally may have non-radiating low back muscle spasm. He has always been prone to brief lightheadedness after bending over and standing back up. Generally very active- he is currently putting up delacruz/sheet rock. He may talk in his sleep/chatter/chuckle, may swing/push his arms (put does not punch), and once when in [place]- he jumped out of bed and pointed at the floor stating I told you not to do that (this was 3-4 yrs ago, was tired and frustrated before going to bed). States memory is ok, some forgetfulness. Denies numbness, focal weakness (feels overall not a strong as before- can carry 1 sheet of sheet rock not 2), peripheral skin changes, swelling, gait changes, falls, fasciculations, dysphagia, vision changes, tremors, neck pain, h/o compulsive behaviors. Pt reports his father and all his brothers have severe leg cramps at rest as well. His father passed a long time ago- so does not know if his father had jerking motions. None of his brother's have the jerking movements- pt is the oldest. All of his family is very active like he is. 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 [facility] Medical History GERD (gastroesophageal reflux disease) MARGOTH (obstructive sleep apnea) Asthma Erectile dysfunction Mild mitral insufficiency Mild ascending aorta dilation Hyperlipidemia Hypertension Joint pain Osteoarthritis Wheezing Diverticulosis of colon H/O esophageal reflux Squamous cell carcinoma of scalp Mitral regurgitation Fatigue Anxiety disorder Skin cancer Peripheral polyneuropathy Restless leg syndrome Surgical History History of biopsy (02/27/24) H/O arthroscopy of knee Hx of tonsillectomy Hx of colonoscopy Family History Mother Lung cancer Breast cancer in female Sister Breast cancer in female Social History Alcohol intake: never Patient Tobacco Use Status: Never used Tobacco Physical Exam Vital Signs: Last Vital Signs Pulse 80 05/27/24 11:33 BP 142/60 H 05/27/24 11:33 Pulse Ox 96 05/27/24 11:33 Oxygen Delivery Method Room Air 05/27/24 11:33 BMI result Body Mass Index 31.2 Const General: cooperative and no acute distress Orientation/consciousness: patient oriented x3 HEENT Other: Mallampati stage IV w/ acquired absence of tonsils and uvula. Head: Yes normocephalic Resp Effort & Inspection: normal respiratory effort and able to speak in complete sentences Neuro Other: No visible left forearm extensor muscle activation noted today Distal sensation intact No tremor. Mild BUE, more so on right, tightness Decreased BLE ankle dorsiflexion, more so on right, w/ alex decreased foot taps. Good stride, steady gait General: patient oriented x3, CN's II-XI intact bilaterally and deep tendon reflexes 2+ bilaterally Gait exam (Neuro): Normal gait present Motor exam (neuro): 5/5 motor strength present throughout Deep tendon reflexes (DTR's): Right triceps reflex intensity grade: 2+, Left triceps reflex intensity grade: 2+, Rt Biceps (C5, C6): 2+, Left biceps reflex intensity grade: 2+, Right brachioradialis reflex intensity grade: 2+, Left brachioradialis reflex intensity grade: 2+, Right patellar reflex intensity grade: 2+ and Left patellar reflex intensity grade: 2+ Psych Appearance: grossly normal Mental Status: mental status grossly normal Speech and movement: Normal speech and movement present Affect: normal affect Attitude: cooperative Thought process: Normal thought process present Thought content: Normal thought content present Insight: Good insight present (Psych) Results Reviewed Results Reviewed: 12/19/2023, bilateral upper and lower extremity EMG/NCS IMPRESSION: 1. This is an abnormal study. 2. Needle EMG showed isolated myotonic-like discharges on right mid cervical paraspinals, and PSWs on left medial gastrocnemius and AH muscles. NCS showed low CMAP amplitudes with normal/mildly prolonged distal latencies. Abnormalities primarily seen on motor nerves tested rather than sensory. Although both sural nerves showed absent response. 3. Although myotonic discharges are nonspecific and can be seen in many disorders, including myotonic dystrophy, inflammatory myopathies, hypothyroidism, drug-induced myopathies and even some inherited myopathies, the presence of myotonic discharges specifically in paraspinals highly suggest acid maltase deficiency/Pompe disease. CLINICAL COMMENT: Further clinical correlation and evaluation recommended. Consider workup for Pompe disease and myopathy. If muscle biopsy to be done, can be done where needle EMG was not performed, i.e. left upper extremity. Assessment & Plan Assessment & Plan (1) Restless leg syndrome: Comment: Pt has life long h/o cramps, restless leg s/s, which have exacerbated in the last year following increased ankle pain and left ankle infection. He does have family hx c/w RLS. Code(s): G25.81 - Restless legs syndrome Category: Medical (2) Muscle spasm: Code(s): M62.838 - Other muscle spasm Category: Medical (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 early s/s of neurodegenerative process though no current tremor, gait changes, significant cognitive changes. Code(s): G47.50 - Parasomnia, unspecified Category: Medical (4) Myopathy: Code(s): G72.9 - Myopathy, unspecified Category: Medical (5) Peripheral neuropathy: Code(s): G62.9 - Polyneuropathy, unspecified Category: Medical Plan Follow-up with cardiology as scheduled- again discuss use of diclofenac in setting of Brilinta tx. We will request previously ordered lab results from [facility]. Reviewed BUE and BLE EMG/NCS- abnormal study as above, Follow-up muscle biopsy negative for myopathic or inflammatory process. Information shared with patient on patient education resources to reduce RLS symptoms, such as ?navigating life with restless leg syndrome? by Dr. Almaraz. Trial pregabalin 25 mg p.o. t.i.d.- take between 17:00 and bedtime. Reviewed common side effects pregabalin, patient will call with any untoward effects. Continue Ropinirole IR 0.25mg tab- 1-3 tabs q evening between 6-8pm Continue Ropinirole 2mg qhs May continue OTC [place] leg cramps prn Continue drinking fluids liberally .. Stretching exercises as tolerated. Previous medication trials- gabapentin not tolerated- did not feel right, irritability, itching. Future considerations- in-lab PSG, head imaging. Addendum- able to review [facility] labs- additional labs ordered to round-out lab work-up- upon review of lab resultss- consider holding OTC [place] leg cramp tx. Orders: Orders Protein Electrophoresis, Serum 05/27/24 G72.9 - Myopathy, unspecified, G62.9 - Polyneuropathy, unspecified, M62.838 - Other muscle spasm, D64.9 - Anemia, unspecified, E55.9 - Vitamin D deficiency, unspecified, I21.4 - Non-ST elevation (NSTEMI) myocardial infarction, I25.10 - Atherosclerotic heart disease of [place] coronary artery without angina pectoris, Z95.5 - Presence of coronary angioplasty implant and graft Protein Electrophoresis 24HrUr 05/27/24 G72.9 - Myopathy, unspecified, G62.9 - Polyneuropathy, unspecified, M62.838 - Other muscle spasm, D64.9 - Anemia, unspecified, E55.9 - Vitamin D deficiency, unspecified, I21.4 - Non-ST elevation (NSTEMI) myocardial infarction, I25.10 - Atherosclerotic heart disease of [place] coronary artery without angina pectoris, Z95.5 - Presence of coronary angioplasty implant and graft Creatine Kinase Total 05/27/24 G72.9 - Myopathy, unspecified, G62.9 - Polyneuropathy, unspecified, M62.838 - Other muscle spasm, D64.9 - Anemia, unspecified, E55.9 - Vitamin D deficiency, unspecified, I21.4 - Non-ST elevation (NSTEMI) myocardial infarction, I25.10 - Atherosclerotic heart disease of [place] coronary artery without angina pectoris, Z95.5 - Presence of coronary angioplasty implant and graft CRP High Sensitivity 05/27/24 G72.9 - Myopathy, unspecified, G62.9 - Polyneuropathy, unspecified, M62.838 - Other muscle spasm, D64.9 - Anemia, unspecified, E55.9 - Vitamin D deficiency, unspecified, I21.4 - Non-ST elevation (NSTEMI) myocardial infarction, I25.10 - Atherosclerotic heart disease of [place] coronary artery without angina pectoris, Z95.5 - Presence of coronary angioplasty implant and graft Rheumatoid Factor 05/27/24 G72.9 - Myopathy, unspecified, G62.9 - Polyneuropathy, unspecified, M62.838 - Other muscle spasm, D64.9 - Anemia, unspecified, E55.9 - Vitamin D deficiency, unspecified, I21.4 - Non-ST elevation (NSTEMI) myocardial infarction, I25.10 - Atherosclerotic heart disease of [place] coronary artery without angina pectoris, Z95.5 - Presence of coronary angioplasty implant and graft Vitamin B12 and Folate 05/27/24 G72.9 - Myopathy, unspecified, G62.9 - Poly neuropathy, unspecified, M62.838 - Other muscle spasm, D64.9 - Anemia, unspecified, E55.9 - Vitamin D deficiency, unspecified, I21.4 - Non-ST elevation (NSTEMI) myocardial infarction, I25.10 - Atherosclerotic heart disease of [place] coronary artery without angina pectoris, Z95.5 - Presence of coronary angioplasty implant and graft Ferritin 05/27/24 G72.9 - Myopathy, unspecified, G62.9 - Polyneuropathy, unspecified, M62.838 - Other muscle spasm, D64.9 - Anemia, unspecified, E55.9 - Vitamin D deficiency, unspecified, I21.4 - Non-ST elevation (NSTEMI) myocardial infarction, I25.10 - Atherosclerotic heart disease of [place] coronary artery without angina pectoris, Z95.5 - Presence of coronary angioplasty implant and graft Methylmalonic Acid 05/27/24 G72.9 - Myopathy, unspecified, G62.9 - Polyneuropathy, unspecified, M62.838 - Other muscle spasm, D64.9 - Anemia, unspecified, E55.9 - Vitamin D deficiency, unspecified, I21.4 - Non-ST elevation (NSTEMI) myocardial infarction, I25.10 - Atherosclerotic heart disease of [place] coronary artery without angina pectoris, Z95.5 - Presence of coronary angioplasty implant and graft Vitamin D 25-OH (D2 and D3) 05/27/24 G72.9 - Myopathy, unspecified, G62.9 - Polyneuropathy, unspecified, M62.838 - Other muscle spasm, D64.9 - Anemia, unspecified, E55.9 - Vitamin D deficiency, unspecified, I21.4 - Non-ST elevation (NSTEMI) myocardial infarction, I25.10 - Atherosclerotic heart disease of [place] coronary artery without angina pectoris, Z95.5 - Presence of coronary angio plasty implant and graft Complete Blood Count Auto Diff 05/27/24 G72.9 - Myopathy, unspecified, G62.9 - Polyneuropathy, unspecified, M62.838 - Other muscle spasm, D64.9 - Anemia, unspecified, E55.9 - Vitamin D deficiency, unspecified, I21.4 - Non-ST elevation (NSTEMI) myocardial infarction, I25.10 - Atherosclerotic heart disease of [place] coronary artery without angina pectoris, Z95.5 - Presence of coronary angioplasty implant and graft Comprehensive Met. Panel 05/27/24 G72.9 - Myopathy, unspecified, G62.9 - Polyneuropathy, unspecified, M62.838 - Other muscle spasm, D64.9 - Anemia, unspecified, E55.9 - Vitamin D deficiency, unspecified, I21.4 - Non-ST elevation (NSTEMI) myocardial infarction, I25.10 - Atherosclerotic heart disease of [place] coronary artery without angina pectoris, Z95.5 - Presence of coronary angioplasty implant and graft Hemoglobin A1c 05/27/24 G72.9 - Myopathy, unspecified, G62.9 - Polyneuropathy, unspecified, M62.838 - Other muscle spasm, D64.9 - Anemia, unspecified, E55.9 - Vitamin D deficiency, unspecified, I21.4 - Non-ST elevation (NSTEMI) myocardial infarction, I25.10 - Atherosclerotic heart disease of [place] coronary artery without angina pectoris, Z95.5 - Presence of coronary angioplasty implant and graft Other [facility] 05/27/24 G72.9 - Myopathy, unspecified, G62.9 - Polyneuropathy, unspecified, M62.838 - Other muscle spasm, D64.9 - Anemia, unspecified, E55.9 - Vitamin D deficiency, unspecified, I21.4 - Non-ST elevation (NSTEMI) myocardial infarction, I25.10 - Atherosclerotic heart disease of [place] coronary artery without angina pectoris, Z95.5 - Presence of coronary angioplasty implant and graft Erythrocyte Sedimentation Rate 05/27/24 G72.9 - Myopathy, unspecified, G62.9 - Polyneuropathy, unspecified, M62.838 - Other muscle spasm, D64.9 - Anemia, unspecified, E55.9 - Vitamin D deficiency, unspecified, I21.4 - Non-ST elevation (NSTEMI) myocardial infarction, I25.10 - Atherosclerotic heart disease of [place] coronary artery without angina pectoris, Z95.5 - Presence of coronary angioplasty implant and graft ASHIA Reflex Titer and Pattern 05/27/24 G72.9 - Myopathy, unspecified, G62.9 - Polyneuropathy, unspecified, M62.838 - Other muscle spasm, D64.9 - Anemia, unspecified, E55.9 - Vitamin D deficiency, unspecified, I21.4 - Non-ST elevation (NSTEMI) myocardial infarction, I25.10 - Atherosclerotic heart disease of [place] coronary artery without angina pectoris, Z95.5 - Presence of coronary angioplasty implant and graft IRON PROFILE 05/27/24 G72.9 - Myopathy, unspecified, G62.9 - Polyneuropathy, unspecified, M62.838 - Other muscle spasm, D64.9 - Anemia, unspecified, E55.9 - Vitamin D deficiency, unspecified, I21.4 - Non-ST elevation (NSTEMI) myocardial infarction, I25.10 - Atherosclerotic heart disease of [place] coronary artery without angina pectoris, Z95.5 - Presence of coronary angioplasty implant and graft Homocysteine 05/27/24 G72.9 - Myopathy, unspecified, G62.9 - Polyneuropathy, unspecified, M62.838 - Other muscle spasm, D64.9 - Anemia, unspecified, E55.9 - Vitamin D deficiency, unspecified, I21.4 - Non-ST elevation (NSTEMI) myocardial infarction, I25.10 - Atherosclerotic heart disease of [place] coronary artery without angina pectoris, Z95.5 - Presence of coronary angioplasty implant and graft Vitamin B6 05/27/24 G72.9 - Myopathy, unspecified, G62.9 - Polyneuropathy, unspecified, M62.838 - Other muscle spasm, D64.9 - Anemia, unspecified, E55.9 - Vitamin D deficiency, unspecified, I21.4 - Non-ST elevation (NSTEMI) myocardial infarction, I25.10 - Atherosclerotic heart disease of [place] coronary artery without angina pectoris, Z95.5 - Presence of coronary angioplasty implant and graft Medications: New pregabalin 25 mg PO TID 90 caps 2RF 30 days Coding Level of Care Code Est Pt Level 4 (90720) Diagnoses Restless leg syndrome G25.81 Muscle spasm M62.838 Parasomnia G47.50 Myopathy G72.9 Peripheral neuropathy G62.9
[2024-05-27 11:33] VITALS: BP 142/60; PULSE 80; O2SAT 96; BMI 31.2
--- OUTSIDE RECORDS SUMMARY | 2024-05-27 13:41 | XMS_ITS | Clinical Summary ---
Author Organization [facility] Address [address] [place] [address] Care Team Providers Care Manager Product Design Name Role Phone Rai Negron MD Primary Care Provider [phone] Allergies Active Allergy Reactions Criticality Noted Date Comments Oprelvekin 05/29/2019 Medications Medication Sig Dispensed Refills Start Date End Date Status gabapentin (NEURONTIN) 300 MG capsule TAKE 1 CAPSULE BY MOUTH EVERYDAY AT BEDTIME 0 05/18/2019 Active omeprazole (PriLOSEC) 20 MG capsule Take 20 mg by mouth daily. 0 Active IBUPROFEN PO Take by mouth. 0 Active Acetaminophen (TYLENOL PO) Take by mouth. 0 Active albumin human (ALBUTEIN) 25 % bottle Inject into the vein. 0 Active ALBUTEROL SULFATE PO Take by mouth. 0 Active amLODIPine (NORVASC) tablet 2.5 mg TAKE 1 TABLET BY MOUTH DAILY WITH 5MG TAB 0 03/19/2020 Active Family History Medical History Relation Name Comments Cancer Father Cancer Mother Heart disease Mother Cancer Sister Relation Name Status Comments Father Mother Sister Social History Tobacco Use Types Packs/Day Years Used Date Smoking Tobacco: Never Smokeless Tobacco: Never Alcohol Use Standard Drinks/Week Comments No 0 (1 standard drink = 0.6 oz pur e alcohol) Sex and Gender Information Value Date Recorded Sex Assigned at Not on file Gender Identity Not on file Sexual Orientation Not on file Job Start Date Occupation Industry Not on file Not on file Not on file Last Filed Vital Signs Vital Sign Reading Time Taken Comments Blood Pressure - - Pulse - - Temperature - - Respiratory Rate - - Oxygen Saturation - - Inhaled Oxygen Concentration - - Weight 112.9 kg (249 lb) 05/29/2019 10:40 AM EST Height 160 cm (5' 3 ) 05/29/2019 10:40 AM EST Body Mass Index 44.11 05/29/2019 10:40 AM EST Plan of Treatment Health Maintenance Due Date Last Done Comments Hepatitis C Screening 1950 COVID-19 Vaccine (#1) [birth year]08/1951 Depression Screening 1964 BMI Counseling 1970 Preventative Health Evaluation 1970 DTap / Tdap / Td (1 - Tdap) 10/07/1971 Colon Cancer Screening (Colonoscopy) 1997 Shingrix-Zoster Vaccine (1 of 2) 2002 Fall Risk Assessment 2017 Pneumococcal Vaccine (1 of 1 - PCV) 2017 Influenza Vaccine (#1) 2023 RSV Adult > 60+ Yrs or Pregn ant (1 - 1-dose 75+ series) 10/07/2027 Hepatitis B Vaccines Aged Out No long er eligible based on patient's age to complete this topic RSV Ped < 20 months Aged Out No longe r eligible based on patient's age to complete this topic Care Teams Manager Product Design Relationship Specialty Start Date End Date Rai Negron MD [address] [place] [address] PCP - General Internal Medicine 05/13/19
--- OUTSIDE RECORDS SUMMARY | 2024-05-27 13:41 | XMS_ITS ---
Author Organization [address] [place] [address] [place] [phone] Phone Care Team Providers Care Stapler Machine Name Role Phone Bradford Nazario MD Primary Care Provider Transitional Care Management Status:Closed (Closed) Start date:04/15/2024 Enrollment date:04/15/2024 Enrollment reason:Identified using hospital discharge data End date:05/16/2024 Close reason:Completed program Continued Care and Services Coordination
--- OUTSIDE RECORDS SUMMARY | 2024-05-27 13:41 | XMS_ITS | Clinical Summary ---
Author Organization [address] [place] [address] Address [address] [place] [address] Phone Care Team Providers Care Candle Maker Name Role Phone Bradford Nazario MD Primary Care Provider [phone] Allergies Active Allergy Reactions Criticality Noted Date Comments Cholecalciferol (Vitamin D3) Itching 024 Rosuvastatin Itching 03/14/2023 body jerking Medications acetaminophen (TYLENOL ARTHRITIS PAIN ORAL) Take by mouth as needed. Active albuterol HFA (PROAIR HFA ; PROVENTIL HFA ; VENTOLIN HFA) 90 mcg/actuation inhaler Inhale 2 Puffs into the lungs 4 times daily as needed for Wheezing. Dispense 3 inhalers 07/23/19 24 Active clotrimazole (LOTRIMIN) 1 % cream Apply to skin daily for 6 weeks 08/14/19 24 Active diclofenac (VOLTAREN) 1 % topical gel Apply 4 g topically 2 times daily. 01/31/20 23 Active ezetimibe (ZETIA) 10 mg tablet Take 1 tablet (10 mg total) by mouth 1 (one) time each day. 09/10/19 24 Active miscellaneous medical supply misc Homeopathic Products (LEG CRAMP RELIEF) Tab:Take 1 Tab by mouth daily. 04/15/19 15 Active hydrocortisone 1 % topical cream Apply topically toRashes on ankles 08/14/19 24 Active multivit-min/ir on/folic acid/K (ADULTS MULTIVITAMIN ORAL) Take by mouth daily. Active omeprazole (PriLOSEC) [address] capsule Take 1 capsule (20 mg total) by mouth 1 (one) time each day. 07/23/19 24 Active rOPINIRole (REQUIP) 0.5 mg tablet Take 2 Tablets by mouth 2 times daily as needed. Active rOPINIRole (REQUIP) 1 mg tablet TAKE 2 TABLETS BY MOUTH AT BEDTIME 180 tablet 1 03/04/20 24 Active cyclobenzaprine (FLEXERIL) 5 mg tablet Take 1-2 tablets (5-10 mg total) by mouth at bedtime as needed for muscle spasms. 45 tablet 2 04/24/19 25 Active aspirin 81 mg EC tablet Take 1 tablet (81 mg total) by mouth 1 (one) time each day. Active losartan (COZAAR) 25 mg tablet Take 1 tablet (25 mg total) by mouth 1 (one) time each day. Active metoprolol succinate (TOPROL-XL) 25 mg 24 hr tablet Take 1 tablet (25 mg total) by mouth 1 (one) time each day. Do not crush or chew. Take 12.5 mg daily Take 1/2 tab daily Active ticagrelor (BRILINTA) 90 mg tablet Take 1 tablet (90 mg total) by mouth 2 (two) times a day. Active hydrOXYzine HCL (ATARAX) 10 mg tabletIndicatio ns:Anxiety disorder, unspecified type Take 1 tablet (10 mg total) by mouth 3 (three) times a day if needed for anxiety. 90 tablet 1 04/23/19 25 Active amLODIPine (NORVASC) 5 mg tablet TAKE 1 TABLET BY MOUTH EVERY DAY 90 tablet 1 05/26/19 25 Active amLODIPine (NORVASC) 5 mg tablet Take 1 tablet (5 mg total) by mouth 1 (one) time each day. 025 Discontinued Active Problems Problem Noted Date Diagnosed Date Preop cardiovascular exam 02/07/2024 Assessment & Plan (02/07/2024 8:11 AM EST): The patient is being considered for muscle biopsy with neurology date to be determined. Patient's cardiac problems are optimized on current medical therapy. Patient's activity level represents greater than 4 METS. Patient does not require any further testing at this time. Recent nuclear stress test in August 2019 for an echocardiogram as outlined above. Patient is at acceptable risk for the proposed surgical procedure. Aneurysm of ascending aorta 12/31/2023 Assessment & Plan (02/07/2024 8:11 AM EST): Patient has history of mild dilation of ascending aorta. Last echocardiogram showed ascending aorta 3.9 cm. Patient recently underwent echocardiogram yesterday and there was no significant change in the aorta. I will notify him of the final result of the echocardiogram when they become available. Orders: Pulse oximetry, spot ECG 12 lead Chest pain 06/19/2023 Overview (12/31/2023): Last Assessment & Plan: The patient has been reporting vague symptoms of chest discomfort. I suspect this may be more musculoskeletal in nature, however given his risk factors for CAD including hypertension and hyperlipidemia, it is reasonable to rule out ischemia as a cause of his symptoms. He has not had a recent stress test in quite some time. I recommend he undergo a stress echocardiogram for further evaluation. Postural dizziness with presyncope 03/14/2023 Overview (12/31/2023): Last Assessment & Plan: The patient had an episode of near syncope. He has not had any further episodes. Orthostatics today in the office were noted to be negative. EKG showed sinus rhythm with first-degree AV block with occasional PVC, bifascicular block at a rate of 68 bpm which is no significant change from prior EKG in August 2022. The patient describes this near syncopal episode and it may be vasovagal in the setting of new medications. He states he did take the gabapentin that night for the first time. He denies any other changes. We also need to consider a cardiac etiology given his recent event. I will have him complete a 2-week ROCT monitor to assess for any high-grade AV block, arrhythmias or significant pauses. The patient had been reporting fatigue for the past 6 months at his last office visit. I instructed the patient hold off on gabapentin for now and he should speak with his primary care provider regarding further management regarding this medication. Anxiety disorder 03/02/2023 Dermatophytosis of nail 03/02/2023 MARGOTH (obstructive sleep apnea) 03/02/2023 Peripheral polyneuropathy 03/02/2023 Restless leg syndrome 03/02/2023 Skin cancer 03/02/2023 Fatigue 09/28/2022 Overview (12/31/2023): Last Assessment & Plan: The patient reports ongoing fatigue that has been going on for longer than 6 months. Reports he has been followed by his PCP regarding this. He did have lab work completed in March 2022 which showed stable CBC, normal TSH. His PCP also checked vitamin D, vitamin B12 and other lab work given his symptoms. We did discuss that sleep apnea may be causing his symptoms of daytime fatigue. We discussed the effects of sleep apnea on his heart including blood pressure as well. I recommended the patient complete a sleep study to further evaluate for sleep apnea, however the patient does not want to complete this at this time. He reports he is very claustrophobic and will not be able to sleep with the CPAP. He will let me know if he changes his mind. I will also have him complete lab work including CMP and magnesium level. At this point, we will continue current therapies and he will continue to follow-up with his PCP. He will also complete an updated echocardiogram and I will notify him of the results as soon as become available. Erectile dysfunction 10/26/2021 Overview (12/31/2023): Last Assessment & Plan: Patient is asking me to fill his Adcirca (this is the ED medication his insurance company approved) today. He does confirm he is not on nitroglycerin or long- acting nitrate. I did discuss with him the risks and benefits of this medication. I did explain to him that there is always a risk of priapism and that he is to get urgent medical attention if he has an erection that lasts longer than 4 hours. I did go over the side effect profile with him including headache, flushing. I also told him that he is to start with the lowest effective dose. I agreed to send 5 tablets for him with the understanding that any further refills will come from his PCP. Hypertension 07/26/2021 Overview (12/31/2023): Last Assessment & Plan: The patient has been reporting elevated blood pressures at home and brings in a blood pressure log. His blood pressure today is well-controlled with a reading 120/78. He does note that he uses a wrist blood pressure cuff and he has had it for quite some time. We discussed this in depth today. His blood pressure cuff may obtaining inaccurate readings and I suggested that he obtain a new arm blood pressure cuff. I offered to send a prescription in, however the patient would like to purchase this on his own. At this point, he will obtain a new blood pressure cuff and notify me of consistently elevated blood pressures. We reviewed the importance of sitting and resting for 15 minutes prior to taking the blood pressure. At this point, he will continue his current antihypertensive medication regimen with amlodipine as prescribed. Assessment & Plan (02/07/2024 8:11 AM EST): Patient's blood pressure is well-controlled today. He will continue his current antihypertensive medication regimen as prescribed. Mitral regurgitation 07/26/2021 Overview (12/31/2023): Last Assessment & Plan: The patient has a history of mild mitral regurgitation. Will continue to monitor for progression of his mitral insufficiency with. Echocardiograms. Squamous cell carcinoma of scalp 02/07/2021 Septic arthritis 05/01/2017 Overview (12/31/2023): MRSA left ankle 04/15/2017 Umbilical hernia 04/15/2014 Impaired fasting glucose 12/20/2012 Benign neoplasm of colon 04/22/2009 Overview (12/31/2023): Small cecal polyp at CN 04/22/2009: Serrated adenoma. Next colonoscopy indicated 2014. Diverticulitis of colon without hemorrhage 04/22 Overview (12/31/2023): Incidental finding at colonoscopy 04/22/2009. Mixed hyperlipidemia 02/09/2009 Overview (12/31/2023): Last Assessment & Plan: The patient has a history of hyperlipidemia and unable to tolerate rosuvastatin in the past. He was started on ezetimibe. We will update a new fasting lipid panel to reassess his lipid control. I have reviewed with the patient the importance of a heart healthy lifestyle which includes eating a low-fat low-salt diet, getting regular exercise, maintaining a healthy weight, not smoking, and following up with routine medical care. Wheezing 02/09/2009 Overview (12/31/2023): Controlled with albuterol Esophageal reflux 12/21/2005 Encounters Date Type Department Care Team Description 04/23/2024 11:30 AM EST Office Visit Adult Medicine [address] [phone] Bradford Nazario MD Hospital discharge follow-up (Primary Dx); NSTEMI (non-ST elevated myocardial infarction) ([facility]); CAD S/P percutaneous coronary angioplasty; Primary hypertension; Mixed hyperlipidemia; Restless leg syndrome; MARGOTH (obstructive sleep apnea); Gastroesophageal reflux disease without esophagitis; Squamous cell carcinoma of scalp; Anxiety disorder, unspecified type from Last 3 Months Immunizations Name Administration Dates Next Due Influenza trivalent, with pr eservative (Fluzone; Afluria) 6mo and older 02/06/2008 Td, Unspecified 03/11/2000 Tdap Tetanus diptheria acell ular pertussis (Boostrix; Adacel) 7yo and older 03/24/2022,11/20/2011 Surgical History Surgery Date Site/Laterality Comments TONSILLECTOMY PROCEDURE: HISTORICAL TONSILLECTOMY KNEE ARTHROSCOPY PROCEDURE: AL ARTHROSCOPY KNEE DIAGNOSTIC W/WO SYNOVIAL BX SPX; COMMENT: torn cartilage COLONOSCOPY W/ BIOPSIES 04/22/2009 PROCEDURE: AL COLONOSCOPY W/BIOPSY SINGLE/MULTIPLE; COMMENT: small cecal polyp and diverticulosis: Serrated adenoma. MULTIPLE TOOTH EXTRACTIONS PROCEDURE: HISTORICAL DENTAL EXTRACTION COLONOSCOPY 04/12/2022 PROCEDURE: HISTORICAL COLONOSCOPY; COMMENT: TA & SSA and diverticulosis Medical History Medical History Date Comments Esophageal reflux 12/21/2005 DX:Esophageal reflux Benign neoplasm of colon 04/22/2009 DX:Oswaldo gn neoplasm of colon Diverticulosis of colon (wit hout mention of hemorrhage) 04/22/2009 DX:Diverticulosis of colon ( without mention of hemorrhage) History of DVT in adulthood - DX:H istory of DVT in adulthood; COMMENT: following knee menisectomy Family History Medical History Relation Name Comments Lung cancer Father Heart attack Mother lung ca, deceas ed Lung cancer Mother Breast cancer Sister Relation Name Status Comments Father Mother Sister Social History Tobacco Use Types Packs/Day Years Used Date Smoking Tobacco: Never Smokeless Tobacco: Never Alcohol Use Standard Drinks/Week Comments Not Currently 0 (1 standard drink = 0.6 oz pur e alcohol) Housing Instability Answer Date Recorde d Are you worried that in the next 2 months you may not have stable housing? No 04/22/2024 Food Access & Nutrition Answer Date Rec orded Do you have access to a vari ety of food including fruits and vegetables? Yes 04/22/2024 Access to Healthcare Answer Date Record ed Within the last 3 months, ho w many times did you visit the emergency department for your medical care? 1 04/22/2024 Health Literacy Answer Date Recorded How often do you need to hav e someone help you when you read instructions, pamphlets, or other written material from your doctor or pharmacy? Never 04/22/2024 Caregiver: How often do you need to have someone help you when you read instructions, pamphlets, or other written material from your doctor or pharmacy? Not on file 04/22/2024 Financial Risk Answer Date Recorded How hard is it for you to pa y for the very basics like food, housing, medical care, and air conditioning / heating? Not very hard 04/22/2024 Transportation Answer Date Recorded Has the lack of transportati on kept you from meetings, work, or from getting things needed for daily living? No Has the lack of transportati on kept you from medical appointments or from getting medications? No 04/22/2024 Social Isolation Answer Date Recorded How often do you feel lonely or isolated from th ose around you? Never 04/22/2024 Food Risk Answer Date Recorded Within the past 12 months we worried whether our food would run out before we got money to buy more. Never true 04/22/2024 Within the past 12 months th e food we bought just didn't last and we didn't have money to get more. Never true 04/22/2024 Dependent Care Answer Date Recorded Do you need help finding or paying for care for your loved ones. For example, child protection specialist or elderly care for an older adult? No 04/22/2024 Education Answer Date Recorded Do you think completing more education or training, like finishing a GED, going to college, or learning a trade, would be helpful for you? No 04/22/2024 Employment and Income Answer Date Recor ded During the last four weeks, have you been actively looking for work? No 04/22/2024 Living Situation Answer Date Recorded What is your living situation? 0 04/22/2024 Sex and Gender Information Value Date Recorded Sex Assigned at Not on file Legal Sex Male 6:54 PM EST Gender Identity Not on file Sexual Orientation Not on file Obstetrics History Last Filed Vital Signs Vital Sign Reading Time Taken Comments Blood Pressure 121/78 04/23/2024 11:12 AM EST Pulse 59 04/23/2024 11:12 AM EST Temperature 36.4 ??C (97.6 ??F) 04/23/2024 11:[address] Respiratory Rate 18 04/23/2024 11:12 AM EST Oxygen Saturation 98% 04/23/2024 11:12 AM EST Inhaled Oxygen Concentration - - Weight 113 kg (248 lb 9.6 oz) 04/23/2024 11:12 A M EST Height 190.5 cm (6' 3 ) 04/23/2024 11:12 AM EST Body Mass Index 31.07 04/23/2024 11:12 AM EST Plan of Treatment Upcoming Encounters Date Type Department Care Team (Late st Contact Info) Description 05/30/2024 9:40 AM EST Office Visit [facility] Cardiology [address] [place] [address] Liz Barlow NP [address] [place] [address] [address] [place] [address] 07/22/2024 11:00 AM EDT Office Visit Adult Medicine [address] [phone] Bradford Nazario MD [address] [place] [phone] Health Maintenance Due Date Last Done Comments COVID-19 Vaccine (#1) 1955 Pneumococcal Vaccine: 50+ Years (1 of 2 - PCV) 10/07/1971 Zoster Vaccines (1 of 2) 10/07/1971 RSV Immunization Patients 60 + Years Old (1 - Risk 60-74 years 1-dose series) 2012 Medicare Annual Wellness Visit 03/09/2022 Influenza Vaccine (#1) 2023 02/06/2008 Falls Risk Assessment 09/02/2024 09/03/2023 Hypertension/CHF/CAD Annual BMP Blood Test 09/04/2024 09/05/2023, 09/05/2023, 08/15/2023 Depression Screening 04/22/2025 04/22/2024, 09/03/2023 Social Influencers of Health Screening 04/22/2025 04/22/2024 Cholesterol Screening (Lipid Panel) 09/04/2028 09/05/2023, 09/05/2023 DTaP,Tdap,and Td Vaccines (4 - Td or Tdap) 03/24/2032 03/24/2022, 11/20/2011, 03/11/2000 Colorectal Cancer Screening: Colonoscopy 04/12/2032 04/12/2022 Hepatitis C Screening Completed 10/15/2002 HIB Vaccines Aged Out No longer eligi ble based on patient's age to complete this topic HPV Vaccines Aged Out No longer eligi ble based on patient's age to complete this topic Hepatitis A Vaccines Aged Out No long er eligible based on patient's age to complete this topic Hepatitis B Vaccines Aged Out No long er eligible based on patient's age to complete this topic IPV Vaccines Aged Out No longer eligi ble based on patient's age to complete this topic MMR Vaccines Aged Out No longer eligi ble based on patient's age to complete this topic Meningococcal ACWY Vaccine Aged Out N o longer eligible based on patient's age to complete this topic Meningococcal B Vacine Aged Out No lo nger eligible based on patient's age to complete this topic RSV Immunization Patients Under 20 months Aged Out No longer eligible b ased on patient's age to complete this topic Varicella Vaccines Aged Out No longer eligible based on patient's age to complete this topic Procedures Procedure Name Priority Date/Time Associated Diagnosis Comments XR CHEST 2 VIEWS Routine 04/24/2024 10:4 0 AM EST ECG 12-LEAD Routine 04/24/2024 10:39 AM EST EXTERNAL ECHO Routine 04/24/2024 10:38 AM EST HM ANNUAL BMP BLOOD TEST Routine 09/05/2023 LIPID PANEL Routine 09/05/2023 DEPRESSION SCREENING Routine 09/03/2023 FALLS RISK ASSESSMENT Routine 09/03/2023 COLONOSCOPY Routine 04/12/2022 HEPATITIS C SCREENING Routine 10/15/2002 from Last 3 Months or Most Recently Relevant to Health Maintenance Results * XR Chest 2 Views (04/24/2024 10:40 AM EST) Anatomical Region Laterality Modality Body Radiographic Mackenzie ging Result [facility] Provider IMG XR PROCEDURES Final R esult * ECG 12 lead (04/24/2024 10:39 AM EST) Result [facility] Nel BANERJEE ECG ORDERABLES Final Res ult * External Echo (04/24/2024 10:38 AM EST) Anatomical Region Laterality Modality Ultrasound Result [facility] Nel BANERJEE CV ECHO PROCEDURES Final Result * Annual BMP Blood Test (09/05/2023) [facility] Annual BMP Blood Test abstracted Result [facility] Nel BANERJEE HEALTH MAINTENANCE Final Result * (ABNORMAL) Lipid panel (09/05/2023) [facility] LDL/HDL Ratio 5(A) 0 - 4 Triglycerides 110 0 - 150 mg/dL Cholesterol 180 0 - 200 mg/dL HDL 40 >=40 mg/dL LDL Cholesterol 118(A) 0 - 100 mg/dL Blood Venous blood specimen / Unknown Result [facility] Nel BANERJEE LAB BLOOD ORDERABLES Jannette l Result * Falls Risk Assessment (09/03/2023) [facility] Falls Risk Assessment abstracted Result [facility] Nel BANERJEE HEALTH MAINTENANCE Final Result * Depression Screening (09/03/2023) [facility] Depression Screening abstracted us Historical Provider HEALTH MAINTENANCE Final Result * Colonoscopy (04/12/2022) Colonoscopy no interpreta tion,abstr acted Anatomical Region Laterality Modality Other Historical Provider HEALTH MAINTENANCE Final Result * Hepatitis C Screening (10/15/2002) Hepatitis C Screening abstracted Historical Provider HEALTH MAINTENANCE Final Result from Last 3 Months or Most Recently Relevant to Health Maintenance Insurance [employer] - [place] MEDICARE ADVANTAGE Care Teams Candle Maker Relationship Specialty Start Date End Date Bradford Nazario MD [address] [place] [address] PCP - General Internal Medicine 07/14/21
== END 2024-05-27 12:17 | disposition home or self-care (01) ==
PROVIDERS: PCP Internal Medicine; Visit Provider Nurse Practitioner Family
DX: G25.81 Restless legs syndrome (principal); M62.838 Other muscle spasm; G47.50 Parasomnia, unspecified; G72.9 Myopathy, unspecified; G62.9 Polyneuropathy, unspecified
CPT/HCPCS: 99214

== ENCOUNTER → 2024-05-27 11:12 | Outpatient (BNVA) | payer BC, SELFPAY | PROVIDERS: PCP Internal Medicine; Visit Provider Nurse Practitioner Family ==

== ENCOUNTER 2024-11-27 09:20 | Outpatient (AMB) | payer BC, SELFPAY ==
--- NOTE | 2024-11-27 09:23 | MHC.OFFVIS ---
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 Required: No Accompanied by: Spouse Allergies gabapentin Allergy (Severe, Verified 11/27/24 09:29) Unknown Eftdwqa-RBF-RsA Reductase Inhibitor Allergy (Severe, Verified 11/27/24 09:29) Agitated Medication List - Last Reconciled 11/27/24 by Stephanie Littlejohn, SLEEP MEDICINE PHYSICIAN albuterol sulfate 90 mcg/actuation 2 puffs inhalation Q6H PRN amlodipine 5 mg PO DAILY aspirin 81 mg PO DAILY clopidogrel 75 mg PO DAILY cyclobenzaprine 5 mg PO BEDTIME famotidine 20 mg PO DAILY hydroxyzine HCl 10 mg PO BEDTIME losartan 25 mg PO DAILY multivitamin 1 tab PO DAILY pramipexole 4 tabs daily at bedtime, and may take extra 1/2-1 tab daily as needed orally bedtime; 30 days HPI Comments Details: 74-year-old right-handed male presenting with neuropathy symptoms and restless legs syndrome. He underwent a left anterior approach THR on 10/27/24 Dr Pappas at [facility] , without complication. He does note he did pre-surgery exercises, which he feels has helped his recovery. He is doing PT. He also reports his brillanata was switched to plavix, and thus his omeprazole was switched to famotidine. He plans to f/u w// ortho to discuss having a f/u right ankle repair. After he takes the ropinirole, he experieinces sickness in his stomach, a wave of heat, and itchiness. He states he has continued to take it, as it is helpful for his RLE shooting pain up his leg and restlessness. He did try the pregabalin however cause hallucinations. Gabapentin previously caused hallucinations. 05/27/24, Previous HPI: The patient is a 73-year-old right-handed male presenting with neuropathy symptoms and restless legs syndrome. He experienced a myocardial infarction that required intervention with coronary stents in April and has since been partaking in cardiac rehabilitation. His CV medication regimen was optimized, he is now on Brilinta. Note, patient continues on diclofenac states he was not advise to hold this. He has an appointment Sunday with cardiology- I advised him to discuss if he can continue to take these concomitantly with cardiology. Since the last visit, patient underwent BUE/BLE EMG/ NCS which was abnormal- which showed isolated myotonic like discharges on right mid cervical paraspinals and PSWs on left medial gastrocnemius and AH muscles. NCS showed low CMAP amplitudes with normal/mildly prolonged distal latencies. Abnormalities primarily seen on motor nerves tested rather than sensory- though both sural nerves showed absent response. 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 Muscle biopsy ruled out inflammatory or autoimmune causes. He notes particular sensitivity at the biopsy site, which has improved over time. He states that he did do the blood work that we previously ordered, however I do not have these results today. We will request them. He describes his neuropathy involves significant concerns about jerking leg movements and soreness would start in the feet and move up the body, more so on the right side. These symptoms occur predominantly post-supper in the evenings, which interfere with rest. for instance, he often needs to stand while watching TV in the evening. He may occasionally have these symptoms earlier day when at rest. These symptoms are partially managed with the added doses of ropinirole, although it does not fully alleviate them. He did see Rheumatology, who did not feel his symptoms were rheumatological, although he does have osteoarthritis. Rheumatology suggested he discuss with us trialing gabapentin or pregabalin. Patient reports he has previously tried gabapentin without success due to side effects and is considering pregabalin as an alternate option for symptom management. 11/14/2023. Right-handed 73-yr-old male presents for neurological evaluation of RLS w/ ? of peripheral neuropathy. Pt is accompanied by his , Meeta. He has had bilateral ankle pain since his 20s. He has very limited ankle ROM. He was tried on Indocin in the past which helped but then this was switched to Ibuprofen. Last yr, he was diagnosed w/ a left ankle MRSA infection- was tx'd w/ course of ABT. He recently retried indocin, but this made him feel very strange and he was switched back to Ibuprofen. Ortho offered ankle fusion, however could not guarantee the pain would resolve. He has a rheumatology consult on 11/29 at [facility]. He has had muscle spasms in the upper inner thighs his whole life. More recently, he has started to have cramps in the calves as well. The cramps occur at rest. Can be triggered by dehydration or increased activity- such as hiking and then sitting down. He previously used quinine, but since quinine 30 yrs ago, became unavailable he started taking OTC [place] leg cramps prn, which helps. (Active Ingredients: Cinchona Officinalis 3X HPUS, Aconitum Napellus 6X HPUS, Gnaphalium Polycephalum 3X HPUS, Ledum Palustre 6X HPUS, Magnesia Phosphorica 6X HPUS, Rhus Toxicodendron 6X HPUS, Viscum Album 3X HPUS). In the past, tried prn Tizanidine, vinegar, mustard, pickle juice- but did not really help. He has always been very active, not prone to sit down for long. He has urge to move, cannot sit still for more than 10-15 minutes- this is more so in the last 3-4 yrs. Then about a year ago, he started having episodes of feeling an electrical shock causing an involuntary leg and now upper body jerking. He can feel creepy crawling sensation across his shoulders. Sometimes his hands carmp at rest. This always occurs at rest, more so in the evening after 7pm, but worse after bedtime. He started ropinirole 2mg an hr before bed, which helps to reduce the jerking motion. However, if he does not fall asleep right away, then he cannot stay laying down in the bed and has to get up and move. Uses Tizanidine prn for back spasms (different from the leg cramps)- helps the back, but not the legs. Tried Gabapentin 100mg qhs- did not tolerate, made him feel weird. He has not tried weighted blanket- worried about his claustrophobia- cannot even watch a movie where someone someone is locked in a closet. He does have milder sleep apnea, but could not tolerate the CPAP mask as he is claustrophobic and has to get up and move. Has difficulties on long plane rides. He can drive longer distances, but does not tolerate being a passenger. Occasionally may have non-radiating low back muscle spasm. He has always been prone to brief lightheadedness after bending over and standing back up. Generally very active- he is currently putting up delacruz/sheet rock. He may talk in his sleep/chatter/chuckle, may swing/push his arms (put does not punch), and once when in [place]- he jumped out of bed and pointed at the floor stating I told you not to do that (this was 3-4 yrs ago, was tired and frustrated before going to bed). States memory is ok, some forgetfulness. Denies numbness, focal weakness (feels overall not a strong as before- can carry 1 sheet of sheet rock not 2), peripheral skin changes, swelling, gait changes, falls, fasciculations, dysphagia, vision changes, tremors, neck pain, h/o compulsive behaviors. Pt reports his father and all his brothers have severe leg cramps at rest as well. His father passed a long time ago- so does not know if his father had jerking motions. None of his brother's have the jerking movements- pt is the oldest. All of his family is very active like he is. 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 [facility] Medical History GERD (gastroesophageal reflux disease) MARGOTH (obstructive sleep apnea) Asthma Erectile dysfunction Mild mitral insufficiency Mild ascending aorta dilation Hyperlipidemia Hypertension Joint pain Osteoarthritis Wheezing Diverticulosis of colon H/O esophageal reflux Squamous cell carcinoma of scalp Mitral regurgitation Fatigue Anxiety disorder Skin cancer Peripheral polyneuropathy Restless leg syndrome Surgical History History of biopsy (02/27/24) H/O arthroscopy of knee Hx of tonsillectomy Hx of colonoscopy Family History Mother Lung cancer Breast cancer in female Sister Breast cancer in female Social History Alcohol intake: never Patient Tobacco Use Status: Never used Tobacco Physical Exam Vital Signs: Last Vital Signs Pulse 64 11/27/24 09:24 BP 128/74 11/27/24 09:24 Pulse Ox 97 11/27/24 09:24 Oxygen Delivery Method Room Air 11/27/24 09:24 BMI result Body Mass Index 30.8 Const General: cooperative and no acute distress Orientation/consciousness: patient oriented x3 HEENT Other: Mallampati stage IV w/ acquired absence of tonsils and uvula. Head: Yes normocephalic Resp Effort & Inspection: normal respiratory effort and able to speak in complete sentences Neuro Other: No visible left forearm extensor muscle activation noted today No tremor. Mild BUE, more so on right, tightness Decreased BLE ankle dorsiflexion, more so on right, w/ alex decreased foot taps. Good stride, steady gait General: patient oriented x3 and CN's II-XI intact bilaterally Gait exam (Neuro): Normal gait present Motor exam (neuro): 5/5 motor strength present throughout Psych Appearance: grossly normal Mental Status: mental status grossly normal Speech and movement: Normal speech and movement present Affect: normal affect Attitude: cooperative Thought process: Normal thought process present Thought content: Normal thought content present Insight: Good insight present (Psych) Results Reviewed Results Reviewed: 12/19/2023, bilateral upper and lower extremity EMG/NCS IMPRESSION: 1. This is an abnormal study. 2. Needle EMG showed isolated myotonic-like discharges on right mid cervical paraspinals, and PSWs on left medial gastrocnemius and AH muscles. NCS showed low CMAP amplitudes with normal/mildly prolonged distal latencies. Abnormalities primarily seen on motor nerves tested rather than sensory. Although both sural nerves showed absent response. 3. Although myotonic discharges are nonspecific and can be seen in many disorders, including myotonic dystrophy, inflammatory myopathies, hypothyroidism, drug-induced myopathies and even some inherited myopathies, the presence of myotonic discharges specifically in paraspinals highly suggest acid maltase deficiency/Pompe disease. CLINICAL COMMENT: Further clinical correlation and evaluation recommended. Consider workup for Pompe disease and myopathy. If muscle biopsy to be done, can be done where needle EMG was not performed, i.e. left upper extremity. Assessment & Plan Assessment & Plan (1) Restless leg syndrome: Comment: Pt has life long h/o cramps, restless leg s/s, which have exacerbated in the last year following increased ankle pain and left ankle infection. He does have family hx c/w RLS. Code(s): G25.81 - Restless legs syndrome Category: Medical (2) Muscle spasm: Code(s): M62.838 - Other muscle spasm Category: Medical (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 early s/s of neurodegenerative process though no current tremor, gait changes, significant cognitive changes. Code(s): G47.50 - Parasomnia, unspecified Category: Medical (4) Myopathy: Code(s): G72.9 - Myopathy, unspecified Category: Medical (5) Peripheral neuropathy: Code(s): G62.9 - Polyneuropathy, unspecified Category: Medical Qualifiers: Peripheral neuropathy type: polyneuropathy, unspecified Qualified Code(s): G62.9 - Polyneuropathy, unspecified Plan I reviewed patient's portal through [employer] and was able to see recent CBC, CMP, b12, tsh- however do not see results for the remainder of the previously ordered lab tests to further assess assess for underlying etiologies of the peripheral neuropathy. upon review of lab resultss- consider holding OTC [place] leg cramp tx. We will contact [employer] to confirm, otherwise we will request patient do the labs and urine studies as ordered in May. Reviewed BUE and BLE EMG/NCS- abnormal study as above, Follow-up muscle biopsy negative for myopathic or inflammatory process. Patient has stopped pregabalin 25 mg p.o. t.i.d. order-not tolerated. Discontinue both Ropinirole IR 0.25mg and 2 mg tab orders- a due to appears to be causing an itchy rash. Start pramipexole 0.25 mg tab: Four tabs daily at bedtime And may take an extra 1/1-1 tab daily as needed May continue OTC [place] leg cramps prn Continue drinking fluids liberally. Stretching exercises as tolerated. Information previously shared with patient on patient education resources to reduce RLS symptoms, such as ?navigating life with restless leg syndrome? by Dr. Almaraz. Previous medication trials- gabapentin and pregabalin- not tolerated- did not feel right, irritability, itching, hallucinations. Future considerations- in-lab PSG, head imaging. Will follow-up upon review of above and patient to follow-up in clinic in 6 months or sooner prn. Medications: New pramipexole 4 tabs daily at bedtime, and may take extra 1/2-1 tab daily as needed orally bedtime; 150 tabs 6RF 30 days Discontinued ropinirole between 6-8pm Discontinued Reason: Doctor's Order 0.25 - 0.75 mg (1 - 3 x 0.25 mg) PO DAILY 30 days 90 tabs 3RF G25.81 - Restless legs syndrome ropinirole Discontinued Reason: Doctor's Order 2 mg (2 x 1 mg) PO BEDTIME 90 days 180 tabs 1RF Coding Level of Care Code Est Pt Level 4 (89159) Diagnoses Restless leg syndrome G25.81 Muscle spasm M62.838 Parasomnia G47.50 Myopathy G72.9 Peripheral polyneuropathy G62.9 Peripheral neuropathy type: polyneuropathy, unspecified
[2024-11-27 09:24] VITALS: BP 128/74; PULSE 64; O2SAT 97; BMI 30.8
--- OUTSIDE RECORDS SUMMARY | 2024-11-27 10:21 | XMS_ITS | Encounter Summary ---
Author Organization [facility] Address [address] [place] [address] Care Team Providers Care Alterations Expert Name Role Phone Bradford Nazario MD Primary Care Provider [phone] Reason for Visit * Reason Onset Date Comments Question re: Compression Stockings 11/24/2024 Encounter Details Date Type Department Care Team (Late st Contact Info) Description 11/24/2024 Telephone [facility] [address] [place] [address] [place] [address] Didier Hernandez MD [address] [place] [address] Dr [address] [place] [address] Social History Tobacco Use Types Packs/Day Years Used Date Smoking Tobacco: Never Passive Smoke Exposure: Past Smokeless Tobacco: Never Alcohol Use Standard Drinks/Week Comments Not Currently 0 (1 standard drink = 0.6 oz pur e alcohol) Stopped 7 years ago Housing Instability Answer Date Recorde d Are you worried that in the next 2 months you may not have stable housing? No 04/22/2024 Food Access & Nutrition Answer Date Rec orded Do you have access to a vari ety of food including fruits and vegetables? Yes 04/22/2024 Access to Healthcare Answer Date Record ed Within the last 3 months, tory yoon many times did you visit the emergency [...] for your loved ones. For example, child and family counselor or elderly care for an older adult? [...] What is your living situation? 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 He is using them for leg cramping in calves. Would like a call back to ensure these are safe to use. He was concerned due to his kaveh heart attack and high blood pressure. Carmelo can be reached at [phone]. Thank you. documented in this encounter Plan of Treatment Upcoming Encounters Date Type Department Care Team (Late st Contact Info) Description 12/23/2024 11:30 AM EDT Office Visit Adult Medicine [address] [phone] Bradford Nazario MD [address] [place] [id number] 02/25/2025 10:00 AM EST Ancillary Procedure [facility] [address] [facility] [address] [place] [phone] 03/16/2025 1:10 PM EST Office Visit [facility] [address] [place] [phone] Liz Barlow NP [address] [place] [address] Dr [address] [place] [phone] documented as of this encounter Visit Diagnoses Not on filedocumented in this encounter Additional Health Concerns Assessment Noted Time PHQ-9 Depression Total Score: 0 04/22/19 25 3:36 PM EST documented as of this encounter Care Teams Alterations Expert Relationship Specialty Start Date End Date Bradford Nazario MD [address] [place] [address] PCP - General Internal Medicine 07/14/21 documented as of this encounter
--- OUTSIDE RECORDS SUMMARY | 2024-11-27 10:21 | XMS_ITS ---
Author Name [facility] Organization Unknown Results Test Name/Text Value Interpretation Date Range Source Anion Gap SerPl Calc-sCnc 7.0 10/28/2024 5 - 14 [facility] Potassium SerPl-sCnc 4.3 mmol/L 10/28/2024 3.5 - 5.1 [facility] eGFRcr SerPlBld CKD-EPI 2020 80.0 mL/min/1.73m2 10/28/2024 - [facility] Calcium SerPl-mCnc 8.8 mg/dL 10/28/2024 8.4 - 10.2 [facility] BUN/Creat SerPl 19.0 10/28/2024 12 - 20 [facility] CO2 SerPl-sCnc 29.0 mmol/L 10/28/2024 24 - 32 [facility] Sodium SerPl-sCnc 139.0 mmol/L 10/28/2024 135 - 14 5 [facility] Chloride SerPl-sCnc 103.0 mmol/L 10/28/2024 98 - 1 07 [facility] BUN SerPl-mCnc 19.0 mg/dL 10/28/2024 9 - 20 [facility] Glucose SerPl-mCnc 136.0 mg/dL 10/28/2024 70 - 199 [facility] Creat SerPl-mCnc 1.0 mg/dL 10/28/2024 0.7 - 1.3 CT [facility] RDW RBC Auto 13.9 % 10/28/2024 12.1 - 17.7 [facility] WBC # Bld Auto 9.3 K/mcL 10/28/2024 4 - 10.5 [facility] Platelet # Bld Auto 243.0 K/mcL 10/28/2024 150 - 4 50 [facility] Hct VFr Bld Auto 39.5 % Below low normal 10/28/2024 40 - 54 [facility] RBC Auto 94.9 FL 10/28/2024 78 - 100 [facility] RBC # Bld Auto 4.16 M/mcL Below low normal 10/28/2024 4.7 - 6 [facility] PMV Bld Auto 8.2 FL 10/28/2024 7.4 - 11.4 [facility] Hgb Bld-mCnc 13.4 g/dL Below low normal 10/28/2024 13.5 - 18 [facility] MCH RBC Qn Auto 32.2 pcg 10/28/2024 25 - 33 [facility] MCHC RBC Auto-EntMCnc 33.9 g/dL 10/28/2024 32 - 36 [facility] History of Medication Use Medication Directions Dispensed Refills Start Date End Date [facility] dexAMETHasone (DECADRON) tablet 8 mg 8 mg, oral, Once, On Sun10/28/24 at 0800, For 1 dose, Phase II/On Unit, For 1 dose post-op. POD#1 in the morning. Hold for patients with the following procedures: I&D with or without poly exchange, resection arthroplasty, removal of prosthesis. 10/28/2024 completed bisacodyL (DULCOLAX) suppository 10 mg 10/28/2024 active cefadroxil 500 mg capsule Take 1 capsule (500 mg total) by mouth 2 (two) times a day for 7 days. 10/28/2024 active ondansetron ODT (ZOFRAN-ODT) 4 mg disintegrating tablet Dissolve 2 tablets (8 mg total) on top of the tongue every 8 (eight) hours if needed for nausea or vomiting for up to 7 days. 10/28/2024 active pantoprazole (PROTONIX) EC tablet 40 mg 40 mg, oral, Every morning before breakfast, First dose on Sun10/28/24 at 0700, Phase II/On Unit, Do not crush, chew, or split. 10/28/2024 active rOPINIRole (REQUIP) tablet 2 mg 2 mg, oral, Nightly, First dose on Sun10/27/24 at 2100, Phase II/On Unit, at bedtime, Indications: restless leg syndrome 10/28/2024 active senna-docusate (PERICOLACE) 8.6-50 mg per tablet 1 tablet 1 tablet, oral, 2 times daily, First dose on Sun10/27/24 at 2100, Phase II/On Unit, Start evening POD#0 Hold for loose stools Hold for patients with history of IBS, IBO, ileostomy 10/28/2024 active acetaminophen (TYLENOL) 500 mg tablet Take 2 tablets (1,000 mg total) by mouth every 8 (eight) hours for 14 days. 10/27/2024 active ceFAZolin (ANCEF) 2 g in sterile water 20 mL IV syringe 2 g, intravenous, Administer over 3 Minutes, Every 8 hours scheduled, First dose on Sun10/27/24 at 1500, For 1 dose, Phase II/On Unit, Give 8 hours after the intra-op dose, Indication: Prophylaxis-Surgi toan 10/27/2024 completed HYDROmorphone (DILAUDID) injection 0.5 mg 10/27/2024 active orphenadrine (NORFLEX) injection 30 mg 30 mg, intravenous, Once as needed, muscle spasms, Starting on Sun10/27/24 at 0838, For 1 dose, Recovery (only) 10/27/2024 completed albuterol 2.5 mg /3 mL (0.083 %) nebulizer solution 2.5 mg 10/27/2024 active aluminum-magnesium hydroxide-simethicone (MAALOX) 200-200-20 mg/5 mL suspension 30 mL 10/27/2024 active benzocaine-menthoL (CEPACOL SORE THROAT) 15-3.6 mg lozenge 1 lozenge 10/27/2024 active calcium carbonate (TUMS) chewable tablet 500 mg 10/27/2024 active cyclobenzaprine (FLEXERIL) tablet 5 mg 10/27/2024 active lactated Ringer's infusion 100 mL/hr, intravenous, Continuous, Starting on Sun10/27/24 at 0545, Preprocedure 10/27/2024 active magnesium hydroxide (MILK OF MAGNESIA) 400 mg/5 mL suspension 30 mL 10/27/2024 active methocarbamoL (ROBAXIN) 750 mg tablet Take 1 tablet (750 mg total) by mouth every 6 (six) hours if needed for muscle spasms for up to 14 days. 10/27/2024 active metoclopramide (REGLAN) injection 10 mg 10/27/2024 active ondansetron (PF) (ZOFRAN) injection 4 mg 10/27/2024 active oxyCODONE (ROXICODONE) 5 mg immediate release tablet Take 1 tablet (5 mg total) by mouth every 4 (four) hours if needed for moderate pain or severe pain for up to 14 days. Max Daily Amount: 30 mg 10/27/2024 active oxyCODONE (ROXICODONE) immediate release tablet 10 mg 10 mg, oral, Every 4 hours PRN, moderate pain, Pain scale 4-6, Starting on 10/27/24 at 0841, Recovery & On Unit 10/27/2024 active polyvinyl alcohol-povidone (ARTIFICIAL TEARS) 0.5-0.6 % opthalmic solution 1 drop 10/27/2024 active rOPINIRole (REQUIP) tablet 0.5 mg 10/27/2024 active clopidogreL (PLAVIX) 75 mg tablet TAKE 300 MG (4 TABLETS) BY MOUTH ON THE FIRST DAY OF STARTING, AND 75 MG (1 TABLET) DAILY THEREAFTER 10/22/2024 suspended furosemide (LASIX) 20 mg tablet TAKE 1 TABLET (20 MG TOTAL) BY MOUTH DAILY NEEDED FOR LEG SWELLING 10/17/2024 suspended cholecalciferol (VITAMIN D-3) 50 mcg (2,000 unit) tablet Take 1 tablet (2,000 Units total) by mouth 1 (one) time each day. 07/23/2024 active furosemide (LASIX) 20 mg tablet Take 1 tablet (20 mg total) by mouth 1 (one) time each day if needed (leg swelling). 07/22/2024 active Repatha SureClick 140 mg/mL subcutaneous pen injector 07/21/2024 active ticagrelor (BRILINTA) 90 mg tablet Take 1 tablet (90 mg total) by mouth 2 (two) times a day. 07/15/2024 active ezetimibe (ZETIA) 10 mg tablet TAKE 1 TABLET BY MOUTH EVERY DAY 07/11/2024 aborted aspirin 81 mg EC tablet Take 1 tablet (81 mg total) by mouth 1 (one) time each day. 07/11/2024 active evolocumab (Repatha SureClick) 140 mg/mL pen injector injection Inject 1 mL (140 mg total) under the skin every 14 (fourteen) days. 07/11/2024 active losartan (COZAAR) 25 mg tablet Take 1 tablet (25 mg total) by mouth 1 (one) time each day. 07/11/2024 active omeprazole (PriLOSEC) [address] capsule TAKE 1 CAPSULE BY MOUTH EVERY DAY 07/03/2024 active amLODIPine (Norvasc) 10 mg tablet Take 1 tablet (10 mg total) by mouth 1 (one) time each day. 05/30/2024 active cyclobenzaprine (FLEXERIL) 5 mg tablet Take 1-2 tablets (5-10 mg total) by mouth at bedtime as needed for muscle spasms. 04/24/2024 active hydrOXYzine HCL (ATARAX) 10 mg tablet Take 1 tablet (10 mg total) by mouth 3 (three) times a day if needed for anxiety. 04/23/2024 active Asprin Ec Low Dose 81 mg tablet,delayed release 04/16/2024 active rOPINIRole (REQUIP) 1 mg tablet TAKE 2 TABLETS BY MOUTH AT BEDTIME 03/04/2024 active clotrimazole (LOTRIMIN) 1 % cream Apply to skin daily for 6 weeks 08/14/2023 active hydrocortisone 1 % topical cream Apply topically toRashes on ankles 08/14/2023 active albuterol HFA (PROAIR HFA ; PROVENTIL HFA ; VENTOLIN HFA) 90 mcg/actuation inhaler Inhale 2 Puffs into the lungs 4 times daily as needed for Wheezing. Dispense 3 inhalers 07/23/2023 active diclofenac (VOLTAREN) 1 % topical gel Apply 4 g topically 2 times daily. 01/30/2023 active miscellaneous medical supply misc Homeopathic Products (LEG CRAMP RELIEF) Tab:Take 1 Tab by mouth daily. 04/15/2014 active pregabalin (LYRICA) 25 mg capsule Take 1 capsule (25 mg total) by mouth 3 (three) times a day. Max Daily Amount: 75 mg 5 aborted albuterol sulfate HFA 90 mcg/actuation aerosol inhaler INHALE 2 PUFFS INTO THE LUNGS 4 TIMES DAILY NEEDED FOR WHEEZING. DISPENSE 3 INHALERS active amlodipine 10 mg tablet TAKE 1 TABLET BY MOUTH 1 TIME EACH DAY. active amlodipine 5 mg tablet TAKE 1 TABLET BY MOUTH EVERY DAY active aspirin 81 mg tablet,delayed release TAKE 1 TABLET BY MOUTH 1 TIME EACH DAY. active atorvastatin 40 mg tablet TAKE 1 TABLET BY MOUTH 1 TIME EACH DAY. active Brilinta 90 mg tablet TAKE 1 TABLET BY MOUTH TWICE A DAY active celecoxib 200 mg capsule TAKE 1 CAPSULE DAILY active cholecalciferol (vitamin D3) 50 mcg (2,000 unit) tablet TAKE 1 TABLET (2,000 UNITS TOTAL) BY MOUTH ONCE DAILY active clotrimazole 1 % topical cream APPLY TO SKIN DAILY FOR 6 WEEKS active cyclobenzaprine 5 mg tablet TAKE 1-2 TABLETS BY MOUTH AT BEDTIME NEEDED FOR MUSCLE SPASMS active diclofenac sodium 75 mg tablet,delayed release TAKE 1 TABLET BY MOUTH TWICE A DAY active ezetimibe 10 mg tablet TAKE 1 TABLET BY MOUTH EVERY DAY active fluorouracil 5 % topical cream PLEASE SEE ATTACHED FOR DETAILED DIRECTIONS active furosemide 20 mg tablet TAKE 1 TABLET (20 MG TOTAL) BY MOUTH DAILY NEEDED FOR LEG SWELLING active hydrocortisone 1 % topical cream APPLY TOPICALLY TO RASHES ON ANKLES active hydroxyzine HCl 10 mg tablet TAKE 1 TABLET BY MOUTH 3 TIMES DAILY NEEDED FOR ITCHING. active indomethacin 25 mg capsule TAKE 1 CAPSULE BY MOUTH EVERY DAY active losartan 25 mg tablet TAKE 1 TABLET BY MOUTH EVERY DAY active meloxicam 15 mg tablet TAKE 1 TABLET BY MOUTH EVERY DAY active metoprolol succinate ER 25 mg tablet,extended release 24 hr TAKE 1/2 (HALF) TABLET BY MOUTH EVERY DAY. HOLD FOR HEART RATE LESS THAN 55 active omeprazole 20 mg capsule,delayed release TAKE 1 CAPSULE BY MOUTH EVERY DAY active oxycodone 5 mg tablet TAKE 1 TABLET BY MOUTH EVERY 6 HOURS NEEDED FOR PAIN active pregabalin 25 mg capsule TAKE 1 CAPSULE BY MOUTH 3 TIMES A DAY FOR 30 DAYS active ropinirole 0.25 mg tablet TAKE 1-3 TABLETS ORALLY DAILY FOR 30 DAYS BETWEEN 6-8PM active ropinirole 1 mg tablet TAKE 2 TABLETS BY MOUTH AT BEDTIME active simvastatin 10 mg tablet TAKE 1 TABLET BY MOUTH EVERYDAY AT BEDTIME active rOPINIRole (REQUIP) 0.5 mg tablet Take 2 Tablets by mouth 2 times daily as needed. active Allergies Allergen Reaction Severity Comment Documented Date Source Statu s GABAPENTIN Muscle pain 09/18/2024 [facility] act mounika NSAIDS (NON-STEROIDAL ANTI-INFLAMMATORY DRUG) 09/18/2024 [facility] active ROSUVASTATIN ITCHING body jerking 03/14/2023 [facility] active [id number] REDUCTASE INHIBITORS [facility] Problems Problem Status Onset Date Problem Type Date of Resoluti on Source Lumbar arthritis active 2024-07-09 ProblemAct E [facility] Osteoarthritis of left hip joint active 2024-08-12 ProblemAct [facility] Arthritis of hip active 2024-08-12 ProblemAct [facility] Bilateral arthritis of ankle active 2024-07-09 ProblemAct [facility] Bilateral arthritis of knees active 2024-07-09 ProblemAct [facility] History of repair of hip joint active 2024-11-07 ProblemAct [facility] Primary osteoarthritis of left hip active 2024-07-22 ProblemAct [facility] Peripheral polyneuropathy active 2023-03-02 ProblemAct [facility] Hypertension active 2021-07-26 ProblemAct [facility] Skin cancer active 2023-03-02 ProblemAct [facility] Anxiety disorder active 2023-03-02 ProblemAct C [facility] Fatigue active 2022-09-28 ProblemAct [facility] Diverticulitis of colon without hemorrhage active 2009-04-22 ProblemAct [facility] MARGOTH on CPAP active 2023-03-02 ProblemAct [facility] Septic arthritis (CMS/HCC V24, CMS/HCC V28) active 2017-05-01 ProblemAct [facility] Restless leg syndrome active 2023-03-02 ProblemAct [facility] Dermatophytosis of nail active 2023-03-02 ProblemAct [facility] Benign neoplasm of colon active 2009-04-22 ProblemAct [facility] Squamous cell carcinoma of scalp active 2021-02-07 ProblemAct [facility] Impaired fasting glucose active 2012-12-20 ProblemAct [facility] Umbilical hernia active 2014-04-15 ProblemAct C [facility] Aneurysm of ascending aorta (CMS/HCC V24) active 2023-12-31 ProblemAct [facility] Esophageal reflux active 2005-12-21 ProblemAct [facility] Coronary artery disease active 2024-05-27 ProblemAct [facility] Erectile dysfunction active 2021-10-26 ProblemAct [facility] Eczema active ProblemAct [facility] Degeneration of intervertebral disc of lumbar region with discogenic back pain and lower extremity pain active 2024-07-22 ProblemAct [facility] Mixed hyperlipidemia active 2009-02-09 ProblemAct [facility] Immunizations Vaccine Date Source Lot Number Status Tdap Tetanus diptheria acell ular pertussis (Boostrix; Adacel) 7yo and older 03/24/2022 [facility] [id number] completed Tdap Tetanus diptheria acell ular pertussis (Boostrix; Adacel) 7yo and older 11/20/2011 [facility] [id number] completed Influenza trivalent, with pr eservative (Fluzone; Afluria) 6mo and older 02/06/2008 [facility] [id number] completed Td, Unspecified 03/11/2000 [facility] completed Encounters Encounter Type Encounter Reason Primary Diagnosis Location Date Ambulatory [facility] 11/04/2024 Ambulatory Unilateral primary osteoarthritis, left hip Unilateral primary osteoarthritis, left hip [facility] [place]/27/2024 Ambulatory Pre-op Exam Encounter for ot her preprocedural examination [facility] 10/01/2024 Ambulatory [facility] 09/02/2024 Ambulatory [facility] 08/07/2024 Ambulatory [facility] 08/07/2024 Ambulatory [facility] 07/28/2024 Ambulatory [facility] 07/10/2024 Ambulatory [facility] 07/09/2024 Ambulatory [facility] 07/09/2024 Ambulatory [facility] 07/09/2024 Ambulatory [facility] 07/01/2024 Ambulatory [facility] 07/01/2024 Care Team Organization Name Specialty Phone Email Start Date End [facility] [place] 11[place]18[place]20[place] [facility] [place]24 [facility] [place] [facility] 10/01/2024
--- OUTSIDE RECORDS SUMMARY | 2024-11-27 10:21 | XMS_ITS | Clinical Summary ---
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 Dispense 3 inhalers 024 Active clotrimazole (LOTRIMIN) 1 % cream Apply to skin daily for 6 weeks 024 Active miscellaneous medical supply [facility] Homeopathic Products (LEG CRAMP RELIEF) Tab:Take 1 Tab by mouth daily. 015 Active hydrocortisone 1 % topical cream Apply topically toRashes on ankles 024 Active multivit-min/iron /folic acid/K (ADULTS MULTIVITAMIN ORAL) Take by mouth daily. Active rOPINIRole (REQUIP) 0.5 mg tablet Take 2 Tablets by mouth 2 times daily as needed. Active rOPINIRole (REQUIP) 1 mg tablet TAKE 2 TABLETS BY MOUTH AT BEDTIME 180 tablet 1 024 Active cyclobenzaprine (FLEXERIL) 5 mg tablet Take 1-2 tablets (5-10 mg total) by mouth at bedtime as needed for muscle spasms. 45 tablet 2 Active hydrOXYzine HCL (ATARAX) 10 mg tabletIndications :Anxiety disorder, unspecified type Take 1 tablet (10 mg total) by mouth 3 (three) times a day if needed for anxiety. 90 tablet 1 Active amLODIPine (Norvasc) 10 mg tablet Take 1 tablet (10 mg total) by mouth 1 (one) time each day. 90 each 3 025 2025 Active evolocumab (Repatha SureClick) 140 mg/mL pen injector injectionIndicati ons:Mixed hyperlipidemia Inject 1 mL (140 mg total) under the skin every 14 (fourteen) days. 6 mL 2 2024 Active losartan (COZAAR) 25 mg tablet Take 1 tablet (25 mg total) by mouth 1 (one) time each day. 90 tablet 2 Active aspirin 81 mg EC tablet Take 1 tablet (81 mg total) by mouth 1 (one) time each day. 90 tablet 2 Active cholecalciferol (VITAMIN D-3) 50 mcg (2,000 unit) tablet Take 1 tablet (2,000 Units total) by mouth 1 (one) time each day. 90 tablet 3 Active furosemide (LASIX) 20 mg tablet TAKE 1 TABLET (20 MG TOTAL) BY MOUTH DAILY NEEDED FOR LEG SWELLING 90 tablet 1 Active methocarbamoL (ROBAXIN) 750 mg tablet Take 1 tablet (750 mg total) by mouth every 6 (six) hours if needed for muscle spasms for up to 14 days. 40 tablet 10/29/19 25 12:25 PM EDT 025 Active clopidogreL (PLAVIX) 75 mg tabletIndications :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 Take 300 mg one day only then Take 75 mg daily thereafter 94 tablet 1 Active famotidine (Pepcid) 20 mg tablet Take 1 tablet (20 mg total) by mouth 1 (one) time each day. 30 each 1 025 Active omeprazole (PriLOSEC) [address] capsule TAKE 1 CAPSULE BY MOUTH EVERY DAY 90 capsule 3 2024 Discontinued(D iscontinued by another clinician) cefadroxil 500 mg capsule Take 1 capsule (500 mg total) by mouth 2 (two) times a day for 7 days. 14 capsule 10/29/19 12:25 PM EDT 2024 acetaminophen (TYLENOL) 500 mg tablet Take 2 tablets (1,000 mg total) by mouth every 8 (eight) hours for 14 days. 84 each 10/29/19 12:25 PM EDT 2024 oxyCODONE (ROXICODONE) 5 mg immediate release tablet Take 1 tablet (5 mg total) by mouth every 4 (four) hours if needed for moderate pain or severe pain for up to 14 days. Max Daily Amount: 30 mg 30 tablet 10/29/19 12:25 PM EDT 2024 senna-docusate (PERICOLACE) 8.6-50 mg per tablet Take 1 tablet by mouth 2 (two) times a day for 14 days. 28 tablet 10/29/19 12:25 PM EDT 2024 ondansetron ODT (ZOFRAN-ODT) 4 mg disintegrating tablet Dissolve 2 tablets (8 mg total) on top of the tongue every 8 (eight) hours if needed for nausea or vomiting for up to 7 days. 20 tablet 10/29/19 12:25 PM EDT 2024 ticagrelor (BRILINTA) 90 mg tablet Take 1 tablet (90 mg total) by mouth 2 (two) times a day. 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 Coronary artery disease 05/27/2024 Overview (05/27/2024): status post stent placement Assessment & Plan (10/12/2024 3:43 PM EDT): No current symptoms. Compliant with aspirin, Repatha, & Brilinta. Followed by cardiology. Continue outpatient management and follow up. Referral to cardiology for risk stratification prior to surgery. Patient medically optimized. Authorization to hold Brilinta 7 days prior to surgery. Assessment & Plan (10/22/2024 8:59 AM EDT): Patient has a history of coronary artery disease status post NSTEMI and PCI of the mid LAD with a drug-eluting stent and PCI of OM1 with a drug-eluting stent in April 2024. OM 2 was recommended to be treated medically to avoid bifurcation stenting as outlined above. He also underwent echocardiogram which showed LVEF 50 to 55%. On today's visit, he continues to participate in cardiac rehab and denies any exertional or anginal symptoms. He continues on medical therapy with amlodipine, aspirin, Brilinta and Repatha. Patient feels he may have some side effects related to the Brilinta and would like to try Plavix after his surgery in place of the Brilinta. I advised that he would take 300 mg loading dose on his first day of Plavix and 75 mg thereafter. He is aware to continue on the aspirin. He will let us know if he has any issues or questions. Patient advised to seek emergency medical attention by calling 911 if they were to develop severe dyspnea, chest pain that did not resolve with rest or nitroglycerin, or if they were to faint. Orders: ECG 12 lead Transthoracic echocardiogram (TTE) complete with PRN contrast, bubble, strain, and 3D order panel; Future clopidogreL (PLAVIX) 75 mg tablet; Take 1 tablet (75 mg total) by mouth 1 (one) time each day. Please take 300 mg (4 tablets) on the first day of starting plavix and 75 mg (1 tablet) daily thereafter Assessment & Plan (07/11/2024 12:13 PM EDT): Patient has a history of coronary artery disease status post NSTEMI and PCI of the mid LAD with a drug-eluting stent and PCI of OM1 with a drug-eluting stent in April 2024. OM 2 was recommended to be treated medically to avoid bifurcation stenting as outlined above. He also underwent echocardiogram which showed LVEF 50 to 55%. On today's visit, he continues to participate in cardiac rehab and denies any exertional or anginal symptoms. He continues on medical therapy with amlodipine, aspirin, Brilinta and ezetimibe. Will discontinue simvastatin as outlined below and start Repatha. He reports he is also being considered for hip replacement and we discussed that elective surgeries ideally should wait 6 months after stent placement in order to avoid interruption of his dual antiplatelet therapy. Patient advised to seek emergency medical attention by calling 911 if they were to develop severe dyspnea, chest pain that did not resolve with rest or nitroglycerin, or if they were to faint. Assessment & Plan (05/30/2024 10:48 AM EST): The patient was recently hospitalized where he presented with NSTEMI. Left heart catheterization showed mild diffuse disease less than 30% in the left main, moderate diffuse disease in the LAD with 95% stenosis in the mid LAD, 60% stenosis in the proximal LAD and 90% stenosis in OM 2, 100% stenosis which was a chronic total occlusion and lesion in second diagonal mid subsection, 99% stenosis in OM1 left circumflex and 99% stenosis in OM 2 left circumflex. 40% stenosis in the mid RCA proximal subsection and 50% stenosis in the mid RCA mid subsection. The patient underwent PCI of the mid LAD with a drug-eluting stent, PCI of OM1 with a drug-eluting stent and OM 2 will be treated medically to avoid bifurcation stenting. He underwent echocardiogram which showed an LVEF 50 to 55%. On today's visit, he denies any exertional or anginal symptoms. He denies any episodes of chest pain and has been participating in cardiac rehab without any issues. His metoprolol was discontinued due to bradycardia. We discussed his recent hospitalization and test results in depth today. He continues on medical therapy with amlodipine, aspirin, ezetimibe and Brilinta as prescribed. We discussed the importance of continuing Brilinta and aspirin given his recent stent placements. He will reach out to his provider who is managing his arthritis regarding his arthritis medications and to discuss alternatives. Given his blood pressure today, we will increase his amlodipine to 10 mg orally daily which he was previously on. On the other hand, the patient appears to not be taking statin therapy. We had a long discussion and ultimately, the patient believes he was unable to tolerate rosuvastatin as outlined in his chart. He is unsure if he has trialed any other statin in the past. At the end of the discussion, the patient agrees to continue ezetimibe and start atorvastatin 40 mg orally daily. He will reach out if he has any symptoms or side effects after starting this medication. His last LDL cholesterol was noted to be elevated during his hospitalization at 103. I have given him a lab slip to reassess his cholesterol levels as well as lipoprotein a in about 8 weeks if he can tolerate the atorvastatin at 40 mg orally daily, we will increase to 80 mg orally daily depending on his cholesterol levels. We discussed that his goal LDL should ideally be less than 70 given his history to prevent future risk. Patient advised to seek emergency medical attention by calling 911 if they were to develop severe dyspnea, chest pain that did not resolve with rest or nitroglycerin, or if they were to faint. Preop cardiovascular exam 02/07/2024 Assessment & Plan (10/22/2024 8:59 AM EDT): Patient's cardiac problems are optimized on current medical therapy. Patient's activity level represents greater than 4 METS. Patient does not require any further testing at this time. Using the CROOKS cardiac risk assessment patient is at a 0.7% risk for perioperative myocardial infarction or cardiac arrest. Patient is at acceptable risk for the proposed surgical procedure. It is acceptable for the patient to hold Brilinta prior to the procedure and to resume it postoperatively per the surgeons instruction. He should continue on aspirin without interruption. Assessment & Plan (02/07/2024 8:11 AM EST): [...] proposed surgical procedure. Aneurysm of ascending aorta ([facility] V24) 2023 Assessment & Plan (02/07/2024 8:11 AM EST): Patient has history of mild dilation of ascending aorta. Last echocardiogram showed ascending aorta 3.9 cm. Patient recently underwent echocardiogram yesterday and there was no significant change in the aorta. I will notify him of the final result of the echocardiogram when they become available. Orders: Pulse oximetry, spot ECG 12 lead Anxiety disorder 03/02/2023 Dermatophytosis of nail 03/02/2023 MARGOTH on CPAP 03/02/2023 Assessment & Plan (10/12/2024 3:43 PM EDT): Not using CPAP. MARGOTH Protocol. Suggest continued outpatient follow-up and management Peripheral polyneuropathy 03/02/2023 Restless leg syndrome 03/02/2023 [...] with amlodipine as prescribed. Assessment & Plan (10/22/2024 8:59 AM EDT): Patient's blood pressure is well-controlled today, continue on current antihypertensive medication therapy. Orders: ECG 12 lead Assessment & Plan (10/12/2024 3:43 PM EDT): BP Readings from Last 1 Encounters: 10/07/24 124/72 BP managed with losartan & amlodipine; clinically appears stable. Continue current treatment and outpatient management Assessment & Plan (07/11/2024 12:13 PM EDT): Patient's blood pressure has improved since increasing his amlodipine to 10 mg orally daily. He will continue to monitor and notify me of any elevated blood pressure readings. Assessment & Plan (05/30/2024 10:48 AM EST): Patient's blood pressures have been elevated at home ranging 130s to 140s/150 systolically. His blood pressure today is also elevated at 150/82. Will increase his amlodipine back to 10 mg orally daily for further blood pressure control and he will continue to monitor his blood pressures at home. Orders: ECG 12 lead Assessment & Plan (02/07/2024 8:11 AM EST): Patient's blood pressure is well-controlled today. He will continue his current antihypertensive medication regimen as prescribed. Squamous cell carcinoma of scalp 02/07/2021 Septic arthritis (CMS/HCC V24, CMS/HCC V28) 04/04 Overview (12/31/2023): MRSA left ankle 04/15/2017 Umbilical [...] and following up with routine medical care. Assessment & Plan (10/22/2024 8:59 AM EDT): Patient's recent LDL cholesterol on 09/26/2024 was 64. Continue on Repatha. I have reviewed with the patient the importance of a heart healthy lifestyle which includes eating a low-fat low-salt diet, getting regular exercise, maintaining a healthy weight, not smoking, and following up with routine medical care. Orders: ECG 12 lead Assessment & Plan (10/12/2024 3:43 PM EDT): Managed with Repatha, low-cholesterol diet, and lifestyle modification. Suggest continued outpatient follow up. Assessment & Plan (07/11/2024 12:13 PM EDT): The patient has a history of intolerance to statin therapy. He also has a history of coronary artery disease. In the past, he was unable to tolerate rosuvastatin. He recently was started on atorvastatin and ezetimibe, however this had led to significant muscle spasm and myalgias. Therefore, he was trialed on simvastatin 10 mg orally daily. On today's visit, he reports he continues to experience myalgias on the simvastatin which improve when he stops the medication. We discussed this in depth today. Given his history of coronary artery disease, his goal LDL should ideally be less than 70. His last LDL cholesterol was noted to be 100, therefore requires further cholesterol control. Given he is unable to tolerate 3 different statins, we discussed the possibility of initiating a PCSK9 inhibitor. The patient and the patient's spouse are comfortable with this route of medication. Will start him on Repatha for better cholesterol control. We reviewed side effects. Will have him update a new fasting lipid panel after starting the medication 8 to 12 weeks after. I have reviewed with the patient the importance of a heart healthy lifestyle which includes eating a low-fat low-salt diet, getting regular exercise, maintaining a healthy weight, not smoking, and following up with routine medical care. Orders: evolocumab (Repatha Frankick) 140 mg/mL pen injector injection; Inject 1 mL (140 mg total) under the skin every 14 (fourteen) days. Lipid panel with reflex to direct LDL; Future Assessment & Plan (05/30/2024 10:48 AM EST): As outlined above. Will initiate atorvastatin 40 mg orally daily and he will notify me of any side effects or intolerances. I have reviewed with the patient the importance of a heart healthy lifestyle which includes eating a low-fat low-salt diet, getting regular exercise, maintaining a healthy weight, not smoking, and following up with routine medical care. Orders: atorvastatin (LIPITOR) 40 mg tablet; Take 1 tablet (40 mg total) by mouth 1 (one) time each day. Comprehensive metabolic panel; Future Lipoprotein A, cholesterol; Future Lipid panel with reflex to direct LDL; Future Esophageal reflux 12/21/2005 Eczema Overview (10/12/2024): right ankle Resolved Problems Problem Noted Date Diagnosed Date Resolved Date NSTEMI (non-ST elevated myoc ardial infarction) ([facility] V24, [facility] V28) 05/27/2024 0 05/30/2024 Chest pain 06/19/2023 05/30/2024 Overview (12/31/2023): Last Assessment & Plan: The [...] further evaluation. Postural dizziness with presyncope 03/14/2023 05/30/2024 Overview (12/31/2023): Last Assessment & Plan: The [...] provider regarding further management regarding this medication. Mitral regurgitation 07/26/2021 025 Overview (12/31/2023): Last Assessment & Plan: The patient has a history of mild mitral regurgitation. Will continue to monitor for progression of his mitral insufficiency with. Echocardiograms. Wheezing 02/09/2009 05/30/2024 Overview (12/31/2023): Controlled with albuterol Encounters Date Type Department Care Team Description 11/24/2024 Telephone [facility] [address] [place] [address] Didier Hernandez MD 11/14/[address] [place] [address] Didier Hernandez MD 11/12/[address] [place] [address] Cynthia-Didier French MD 11/10/[address] [phone] Bradford Nazario MD 10/31/2024 Telephone [facility] Pre-Admission Testing [address] [place] [address] [phone] Meg Perea RN 10/27/2024 7:00 AM EDT - 10/27/2024 8:00 AM EDT Surgery [facility] OR [address] [place] [address] [phone] Alvarado Pappas MD ARTHROPLASTY HIP TOTAL [97318 (CPT )] 10/27/2024 6:59 AM EDT Anesthesia Event [facility] OR [address] [place] [address] [phone] Zaria Lloyd MD Colliton, Kenneth R, MD 10/27/2024 5:05 AM EDT - 10/28/2024 12:20 PM EDT Hospital Encounter [facility] [address] [place] [phone] Alvarado Pappas MD Primary osteoarthritis of left hip (Primary Dx); Mixed hyperlipidemia Discharge Disposition: Home or Self Care 10/08/[address] [facility] [address] [place] [address] Bradford Nazario MD 10/08/[address] [facility] [address] [place] [address] Bradford Nazario MD 10/07/2024 8:10 AM EDT Consult [facility] [address] [place] [address] Ai Rivera NP 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 (Primary Dx); Preop cardiovascular exam; Primary hypertension; Mixed hyperlipidemia 10/01/2024 10:30 AM EDT Consult Periop Testing - [place] [address] [place] [address] Melissa Berumen PA Preoperative examination (Primary Dx); Primary osteoarthritis of left hip; Primary hypertension; 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; Mixed hyperlipidemia; Class 1 obesity due to excess calories with serious comorbidity and body mass index (BMI) of 32.0 to 32.9 in adult; MARGOTH on CPAP; Personal history of deep vein thrombosis from Last 3 Months Immunizations Name Administration Dates Next Due Influenza trivalent, with pr eservative (Fluzone; Afluria) 6mo and older 02/06/2008 Td, Unspecified 03/11/2000 Tdap Tetanus diptheria acell ular pertussis (Boostrix; Adacel) 7yo and older 03/24/2022,11/20/2011 Surgical History Surgery Date Site/Laterality Comments TONSILLECTOMY PROCEDURE: HISTORICAL TONSILLECTOMY KNEE ARTHROSCOPY Left PROCEDURE: NV ARTHROSCOPY KNEE DIAGNOSTIC W/WO SYNOVIAL BX SPX; COMMENT: torn cartilage COLONOSCOPY W/ BIOPSIES 04/22/2009 PROCEDURE: NV COLONOSCOPY W/BIOPSY SINGLE/MULTIPLE; COMMENT: small cecal polyp and diverticulosis: Serrated adenoma. MULTIPLE TOOTH EXTRACTIONS PROCEDURE: HISTORICAL DENTAL EXTRACTION COLONOSCOPY 04/12/2022 PROCEDURE: HISTORICAL COLONOSCOPY; COMMENT: TA & SSA and diverticulosis CORONARY STENT PLACEMENT CARDIAC CATHETERIZATION DONE ON 04/14/2024 AT [facility] INDICATIONS: Chest pain and NSTEMI HERNIA REPAIR 04/02/2016 - 04/01/2017 umbilical ANKLE RT 04/02/2016 - 04/01/2017 Right MRSA ankle joint s/p hernia repair Medical History Medical History Date Comments Esophageal reflux 12/21/2005 DX:Esophageal reflux Benign neoplasm of colon 04/22/2009 DX:Oswaldo gn neoplasm of colon Diverticulosis of colon (wit hout mention of hemorrhage) 04/22/2009 DX:Diverticulosis of colon ( without mention of hemorrhage) History of DVT in adulthood - DX:H istory of DVT in adulthood; COMMENT: following knee menisectomy Squamous cell carcinoma of scalp Closed left arm fracture 1976 Hypertension Hyperlipidemia Heart disease Myocardial infarction (CMS/H CC V24, CMS/HCC V28) 04/12/2024 Asthma Sleep apnea non complaint un able to use the mask Anxiety Arthritis Vaso vagal episode Eczema right ankle CHF (congestive heart failur e) (CMS/HCC V24, CMS/HCC V28) Deep vein thrombosis (CMS/HC C V24, CMS/HCC V28) Coronary artery disease Family History Medical History Relation Name Comments Alcohol abuse Brother 1 ANDREAS Prostate cancer Brother 1 ANDREAS Alcohol abuse Brother 4 RENNY COPD Brother 5 francisco j Cancer Brother 5 francisco j Lung cancer Father Heart attack Mother Jayda lung ca, deceas ed Heart disease Mother Jayda Lung cancer Mother Jayda Libia Parkinson White syndrome Mother Jayda Breast cancer Sister effie Hodgkin's lymphoma Sister effie Relation Name Status Comments Brother 1 ANDREAS Alive Brother 2 Alive Brother 3 Alive Brother 4 RENNY Brother 5 francisco j Father Mother Jayda Sister effie Alive Social History Tobacco Use Types Packs/Day Years Used Date Smoking Tobacco: Never Passive Smoke Exposure: Past Smokeless Tobacco: Never Tobacco Cessation:Counseling Given: Not Answered Alcohol Use Standard Drinks/Week Comments Not Currently [...] care for your loved ones. For example, salesperson children's shoes or elderly care for an older adult? [...] file Not on file Not on file Obstetrics History Last Filed Vital Signs Vital Sign Reading Time Taken Comments Blood Pressure 139/77 10/28/2024 7:56 AM EDT Pulse 71 10/28/2024 7:56 AM EDT Temperature 36.5 C (97.7 F) 10/28/2024 7:56 AM EDT Respiratory Rate 16 10/28/2024 7:56 AM EDT Oxygen Saturation 96% 10/28/2024 7:56 AM EDT Inhaled Oxygen Concentration - - Weight 111 kg (245 lb) 10/27/2024 5:38 AM EDT Height 190.5 cm (6' 3 ) 10/27/2024 5:38 AM EDT Body Mass Index 30.62 10/27/2024 5:38 AM EDT Plan of Treatment Upcoming Encounters Date Type Department Care Team (Late st Contact Info) Description 12/23/2024 11:30 AM EDT Office Visit Adult Medicine [address] [phone] Bradford Nazario MD [address] [place] [phone] 02/25/2025 10:00 AM EST Ancillary Procedure [facility] [address] [facility] [address] [place] [address] 03/16/2025 1:10 PM EST Office Visit [facility] [address] [place] [phone] Liz aBrlow NP [address] [place] [phone] Health Maintenance Due Date Last Done Comments COVID-19 Vaccine (#1) 1955 Pneumococcal Vaccine: 50+ Years (1 of 2 - PCV) 10/07/1971 Zoster Vaccines (1 of 2) 10/07/1971 RSV Immunization Adult Patients (1 - Risk 60-74 years 1-dose series) 2012 Medicare Annual Wellness Visit 03/09/2022 Influenza Vaccine (#1) 2024 02/06/2008 Social Influencers of Health Screening 04/22/2025 04/22/2024 Falls Risk Assessment 10/28/2025 10/28/2024, 024 Hypertension/CHF/CAD Annual BMP Blood Test 10/28/2025 10/28/2024, 09/26/2024, 07/22/2024, Additional history exists Cholesterol Screening (Lipid Panel) 09/26/2029 09/26/2024, 07/22/2024, 06/27/2024, Additional history exists DTaP,Tdap,and Td Vaccines (4 - Td or Tdap) 03/24/2032 03/24/2022, 11/20/2011, 03/11/2000 Colorectal Cancer Screening: Colonoscopy 04/12/2032 04/12/2022 Hepatitis C Screening Completed 10/15/2002 Depression Screening Completed 04/22/2024, 09/03/19 24 HIB Vaccines Aged Out No longer eligi [...] age to complete this topic Meningococcal B Vaccine Aged Out No l onger eligible based on patient's age to complete this topic RSV Immunization Patients Under 20 months Aged Out No longer eligible based on patient's age to complete this topic Varicella Vaccines Aged Out No longer eligible based on patient's age to complete this topic Medical Devices Implanted Type Area Steam Engineer Device Identifier Shelf Expiration Date Model / Serial / Lot Tritanium Cluster Hole Shell 58mm - [id number] Implanted:Qty: 1 on 10/27/2024 by Alvarado Pappas MD at [facility] Hip Left: Hip [employer] [id number] 03/17/2029 702-04-58 F / / [id number] Liner Acetabular 0deg 40x5.8mm Trident Sz F Polyethylene - [id number] Implanted:Qty: 1 on 10/27/2024 by Alvarado Pappas MD at [facility] Hip Left: Hip [employer] [id number] 03/11/2028 623-00-40 F / / [id number] Hip Head Delta Taper 40mm - [id number] Implanted:Qty: 1 on 10/27/2024 by Alvarado Pappas MD at [facility] Hip Left: Hip [employer] [id number] 04/09/2029 6519-1-04 0 / / [id number] Lp Hex Screw 6.5x30mm - [id number] Implanted:Qty: 1 on 10/27/2024 by Alvarado Pappas MD at [facility] Hip Left: Hip [employer] [id number] 08/20/2029 7537-1842 / / [id number] Lp Hex Screw 6.5x20mm - [id number] Implanted:Qty: 1 on 10/27/2024 by Alvarado Pappas MD at [facility] Hip Left: Hip [employer] [id number] 07/24/2029 2889-8079 / / MAWH Hip Stem Collared High Sz 7 - [id number] Implanted:Qty: 1 on 10/27/2024 by Alvarado Pappas MD at [facility] Hip Left: Hip [employer] [id number] 04/30/2029 6312-8553 / / [id number] Hip Sleeve [employer] V40 +0mm - [id number] Implanted:Qty: 1 on 10/27/2024 by Alvarado Pappas MD at [facility] Hip Left: Hip [employer] [id number] 09/28/2027 6519-T-10 0 / / [id number] Procedures Procedure Name Priority Date/Time Associated Diagnosis Comments BASIC METABOLIC PANEL Routine 10/28/2024 5:33 AM EDT COMPLETE BLOOD COUNT Routine 10/28/2024 5:33 AM EDT OXYGEN THERAPY, ADULT Routine 10/27/2024 11:23 AM EDT OXYGEN THERAPY, ADULT Routine 10/27/2024 11:23 AM EDT OXYGEN THERAPY, ADULT Routine 10/27/2024 11:23 AM EDT OXYGEN THERAPY, ADULT Routine 10/27/2024 11:23 AM EDT XR PELVIS 1-2 VIEWS Routine 10/27/2024 9 :19 AM EDT OXYGEN THERAPY, ADULT Routine 10/27/2024 8:38 AM EDT ANESTHESIA SPINAL BLOCK Routine 10/27/2024 7:04 AM EDT NV ARTHROPLASTY ACETABULAR AND PROXIMAL FEMORAL PROSTHETIC REPLACEMENT 10/27/2024 6:44 AM EDT Unilateral primary osteoarthritis, left hip Case Notes Yaritza-Op 10/01/24 T.M23 Hours ECG 12-LEAD Routine 10/07/2024 10:42 AM EDT 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 Primary hypertension Mixed hyperlipidemia CBC WITH AUTO DIFFERENTIAL Routine 09/26/2024 7:56 AM EDT Preop examination LIPID PANEL WITH REFLEX TO DIRECT LDL Routine 09/26/2024 7:56 AM EDT Mixed hyperlipidemia PREALBUMIN Routine 09/26/2024 7:56 AM EDT Preop examination COMPREHENSIVE METABOLIC PANEL Routine 09/26/2024 7:56 AM EDT Preop examination CBC AND DIFFERENTIAL Routine 09/26/2024 7:56 AM EDT Preop examination HM DEPRESSION SCREENING Routine 09/03/2023 FALLS RISK ASSESSMENT Routine 09/03/2023 COLONOSCOPY Routine 04/12/2022 HEPATITIS C SCREENING Routine 10/15/2002 from Last 3 Months or Most Recently Relevant to Health Maintenance Results * (ABNORMAL) Complete blood count (10/28/2024 5:33 AM EDT) [facility] WBC 9.3 4.0 - 10.5 K/mcL LAB HEMETOLOGY METHOD 10/28/2024 6:43 AM EDT [facility] RBC 4.16(L) 4.70 - 6.00 M/mcL LAB HEMETOLOGY METHOD 10/28/2024 6:43 AM EDT [facility] Hemoglobin 13.4(L) 13.5 - 18.0 g/dL LAB HEMETOLOGY METHOD 10/28/2024 6:43 AM EDT [facility] Hematocrit 39.5(L) 40.0 - 54.0 % LAB HEMETOLOGY METHOD 10/28/2024 6:43 AM EDT [facility] MCV 94.9 78.0 - 100.0 FL LAB HEMETOLOGY METHOD 10/28/2024 6:43 AM EDT [facility] MCH 32.2 25.0 - 33.0 pcg LAB HEMETOLOGY METHOD 10/28/2024 6:43 AM EDT [facility] MCHC 33.9 32.0 - 36.0 g/dL LAB HEMETOLOGY METHOD 10/28/2024 6:43 AM EDT [facility] RDW 13.9 12.1 - 17.7 % LAB HEMETOLOGY METHOD 10/28/2024 6:43 AM EDT [facility] Platelets 243 150 - 450 K/mcL LAB HEMETOLOGY METHOD 10/28/2024 6:43 AM EDT [facility] MPV 8.2 7.4 - 11.4 FL LAB HEMETOLOGY METHOD 10/28/2024 6:43 AM EDT [facility] Blood Venous blood specimen / Unknown Venipuncture / Unknown 10/28/2024 5:33 AM EDT 10/28/2024 6:23 AM EDT us Alvarado Pappas MD LAB BLOOD ORDERABLES Final R esult [facility] [address] [place] [address], [place] [phone] * Basic metabolic panel (10/28/2024 5:33 AM EDT) Sodium 139 135 - 145 mmol/L LAB CHEMISTRY METHOD 10/28/2024 7:00 AM EDT [facility] Potassium 4.3 3.5 - 5.1 mmol/L LAB CHEMISTRY METHOD 10/28/2024 7:00 AM EDT [facility] Chloride 103 98 - 107 mmol/L LAB CHEMISTRY METHOD 10/28/2024 7:00 AM [facility] CO2 29 24 - 32 mmol/L LAB CHEMISTRY METHOD 10/28/2024 7:00 AM [facility] Anion Gap 7 5 - 14 LAB CHEMISTRY METHOD 10/28/2024 7:00 AM EDT [facility] Glucose 136 70 - 199 mg/dL LAB CHEMISTRY METHOD 10/28/2024 7:00 AM EDT [facility] BUN 19 9 - 20 mg/dL LAB CHEMISTRY METHOD 10/28/2024 7:00 AM EDT [facility] Creatinine 1.00 0.70 - 1.30 mg/dL LAB CHEMISTRY METHOD 10/28/2024 7:00 AM [facility] eGFR 80 >=60 mL/min/1. 73m2 LAB CHEMISTRY METHOD 10/28/2024 7:00 AM EDT [facility] Comment:Calculation based on the Chronic Kidney Disease Epidemiology Collaboration (CKD-EPI) equation refit without adjustment for race. BUN/Creatinine Ratio 19.0 12.0 - 20.0 LAB CHEMISTRY METHOD 10/28/2024 7:00 AM EDT [facility] Calcium 8.8 8.4 - 10.2 mg/dL LAB CHEMISTRY METHOD 10/28/2024 7:00 AM EDT [facility] Blood Venous blood specimen / Unknown Venipuncture / Unknown 10/28/2024 5:33 AM EDT 10/28/2024 6:23 AM EDT us Alvarado Pappas MD LAB BLOOD ORDERABLES Final R esult [facility] [address] [place] [address], [place] [phone] * XR Pelvis 1-2 Views (10/27/2024 9:19 AM EDT) Anatomical Region Laterality Modality Body, Pelvis Radiographic Mackenzie ging 10/27/2024 9:32 AM EDT Impressions 10/27/2024 9:33 AM EDT FINDINGS/IMPRESSION: Patient status post left total hip arthroplasty with no radiographic evidence of acute fracture or dislocation on this single frontal radiograph. IMPRESSION: Postoperative radiograph Report reviewed and signed by : Dr. Javier Jeffers on 10/27/2024 9:33 AM. Workstation Name - [id number] -------- FINAL REPORT -------- Dictated By: Javier Jeffers Dictated Date: 10/27/2024 09:32 ET Assigned Physician: Javier Jeffers Reviewed and Electronically Signed By: Javier Jeffers Signed Date: 10/27/2024 09:33 ET Workstation ID: [id number] Transcribed By: Self Edit Transcribed Date: 10/27/2024 09:32 ET Narrative 10/27/2024 9:33 AM EDT EXAM: XR PELVIS 1-2 VIEWS 10/27/2024 9:02 AM HISTORY: 74 years Male Hip replacement, asymptomatic, follow up POD#0 s/p VICKY TECHNIQUE: XR PELVIS 1-2 VIEWS COMPARISON: None. Procedure Note Javier Jeffers MD - 10/27/2024 EXAM: XR PELVIS 1-2 VIEWS 10/27/2024 9:02 AM HISTORY: 74 years Male Hip replacement, asymptomatic, follow up POD#0 s/p VICKY TECHNIQUE: XR PELVIS 1-2 VIEWS COMPARISON: None. IMPRESSION: FINDINGS/IMPRESSION: Patient status post left total hip arthroplasty with no radiographicevidence of acute fracture or dislocation on this single frontalradiograph. IMPRESSION: Postoperative radiograph Report reviewed and signed by : Dr. Javier Jeffers on 10/27/2024 9:33 AM.Workstation Name - [id number] -------- FINAL REPORT -------- Dictated By: Javier Jeffers Dictated Date: 10/27/2024 09:32 ET Assigned Physician: Javier Jeffers Reviewed and Electronically Signed By: Javier Jeffers Signed Date: 10/27/2024 09:33 ET Workstation ID: [id number] Transcribed By: Self Edit Transcribed Date: 10/27/2024 09:32 ET us Alvarado Pappas MD IMG XR PROCEDURES Final Resu lt * Spinal Block (10/27/2024 7:04 AM EDT) Keshawn River MD - 10/27/2024 7:04 AM EDT Keshawn Davis MD 10/27/2024 7:27 AM Spinal Block Patient location during procedure: OR Start time: 10/27/2024 7:04 AM End time: 10/27/2024 7:07 AM Reason for block: primary anesthetic and at surgeon's request Staffing Performed: anesthesiologist Anesthesiologist: Keshawn Davis MD Performed by: Keshawn Davis MD Authorized by: Zaria Lloyd MD Preanesthetic Checklist Completed: patient identified, IV checked, risks and benefits discussed, surgical consent, monitors and equipment checked, pre-op evaluation and timeout performed Spinal Block Patient position: sitting Prep: ChloraPrep and site prepped and draped Patient monitoring: continuous pulse ox Approach: midline Location: L3-4 Injection technique: single-shot Needle Needle type: Song Needle gauge: 25 G Needle length: 3.5 in Additional Notes Positive CSF swirl. 2.6cc 0.5% ropivicaine injected. No blood or paresthesia. Resistance to injection normal. us Zaria Lloyd MD ANESTHESIA ORDERABLES Final Result * ECG 12 lead (10/07/2024 10:42 AM EDT) Ventricular Rate ECG 56 BPM GEMUSE Atrial Rate 56 BPM GEMUSE P-R Interval 232 ms GEMUSE QRS Duration 120 ms GEMUSE Q-T Interval 448 ms GEMUSE QTc 432 ms GEMUSE P Wave [place] -26 degrees GEMUSE R [place] -58 degrees GEMUSE T [place] 31 degrees GEMUSE ECG Interpretation Sinus bradycardia with 1st degree A-V block Right bundle branch block Left anterior fascicular block Bifascicular block Abnormal ECG When compared with ECG of 30-MAY-2024 09:36, No significant change was found Confirmed by JUSTA HDEZ ([id number]) on 10/07/2024 6:01:05 PM GEMUSE 10/07/2024 8:02 AM EDT 10/07/2024 6:01 PM EDT us Ai Rivera NP ECG ORDERABLES Edited Result - Final GEMUSE * (ABNORMAL) Lipid panel with reflex to direct LDL (09/26/2024 7:56 AM EDT) Cholesterol 130 0 - 200 mg/dL LAB CHEMISTRY METHOD 09/26/2024 12:16 PM EDT [facility] Triglycerides 146 0 - 150 mg/dL LAB CHEMISTRY METHOD 09/26/2024 12:16 PM EDT [facility] HDL 37(L) >=40 mg/dL LAB CHEMISTRY METHOD 09/26/2024 12:16 PM EDT [facility] LDL Calculated 64 0 - 100 mg/dL LAB CHEMISTRY METHOD 09/26/2024 12:16 PM EDT [facility] VLDL Cholesterol Segundo 29.2 mg/dL LAB CHEMISTRY METHOD 09/26/2024 12:16 PM EDT [facility] Non HDL Chol. (LDL+VLDL) 93 <145 mg/dL LAB CHEMISTRY METHOD 09/26/2024 12:16 PM EDT [facility] Chol/HDL Ratio 3.5 0.0 - 4.4 LAB CHEMISTRY METHOD 09/26/2024 12:16 PM EDT [facility] Blood Venous blood specimen / Unknown Venipuncture / Unknown 09/26/2024 7:56 AM EDT 09/26/2024 7:56 AM EDT Liz Barlow NP LAB BLOOD ORDERABLES Final Result [facility] [address] [place] [address], * CBC auto differential (09/26/2024 7:56 AM EDT) WBC 5.8 4.8 - 10.8 K/mcL LAB HEMETOLOGY METHOD 09/26/2024 11:49 AM [facility] RBC 4.60 4.50 - 5.50 M/mcL LAB HEMETOLOGY METHOD 09/26/2024 11:49 AM EDT [facility] Hemoglobin 14.6 13.5 - 17.5 g/dL LAB HEMETOLOGY METHOD 09/26/2024 11:49 AM T [facility] Hematocrit 44.8 42.0 - 54.0 % LAB HEMETOLOGY METHOD 09/26/2024 11:49 AM [facility] MCV 97.2 79.0 - 98.0 FL LAB HEMETOLOGY METHOD 09/26/2024 11:49 AM [facility] MCH 31.7 27.0 - 32.0 pcg LAB HEMETOLOGY METHOD 09/26/2024 11:49 AM [facility] MCHC 32.6 32.0 - 37.0 g/dL LAB HEMETOLOGY METHOD 09/26/2024 11:49 AM [facility] RDW 13.6 11.0 - 15.0 % LAB HEMETOLOGY METHOD 09/26/2024 11:49 AM [facility] Platelets 275 130 - 400 K/mcL LAB HEMETOLOGY METHOD 09/26/2024 11:49 AM [facility] MPV 10.0 7.0 - 11.0 FL LAB HEMETOLOGY METHOD 09/26/2024 11:49 AM [facility] NRBC 0.0 <1.0 % LAB HEMETOLOGY METHOD 09/26/2024 11:49 AM [facility] NRBC Absolute 0.00 <0.10 K/mcL LAB HEMETOLOGY METHOD 09/26/2024 11:49 AM [facility] Neutrophils Relative 57.2 % LAB HEMETOLOGY METHOD 09/26/2024 11:49 AM [facility] Lymphocytes Relative 27.7 % LAB HEMETOLOGY METHOD 09/26/2024 11:49 AM [facility] Monocytes Relative 11.3 % LAB HEMETOLOGY METHOD 09/26/2024 11:49 AM [facility] Eosinophils Relative 2.6 % LAB HEMETOLOGY METHOD 09/26/2024 11:49 AM [facility] Basophils Relative 0.9 % LAB HEMETOLOGY METHOD 09/26/2024 11:49 AM [facility] Immature Granulocytes Relative 0.3 % LAB HEMETOLOGY METHOD 09/26/2024 11:49 AM EDT [facility] Neutrophils Absolute 3.29 1.50 - 7.00 K/mcL LAB HEMETOLOGY METHOD 09/26/2024 11:49 AM EDT [facility] Lymphocytes Absolute 1.59 1.00 - 5.00 K/mcL LAB HEMETOLOGY METHOD 09/26/2024 11:49 AM EDT [facility] Monocytes Absolute 0.65 0.20 - 1.00 K/mcL LAB HEMETOLOGY METHOD 09/26/2024 11:49 AM EDT [facility] Eosinophils Absolute 0.15 0.00 - 0.50 K/[facility] LAB HEMETOLOGY METHOD 09/26/2024 11:49 AM EDT [facility] Basophils Absolute 0.05 0.00 - 0.20 K/mcL LAB HEMETOLOGY METHOD 09/26/2024 11:49 AM EDT [facility] Immature Granulocytes Absolute 0.02 0.00 - 0.03 K/[facility] LAB HEMETOLOGY METHOD 09/26/2024 11:49 AM EDT [facility] Blood Venous blood specimen / Unknown Venipuncture / Unknown 09/26/2024 7:56 AM EDT 09/26/2024 7:56 AM EDT Melissa HARTLEY LAB BLOOD ORDERABLES Final Result [facility] [address] [place] [address], * Prealbumin (09/26/2024 7:56 AM EDT) Prealbumin 25 18 - 45 mg/dL LAB CHEMISTRY METHOD 09/26/2024 12:16 PM EDT [facility] Blood Venous blood specimen / Unknown Venipuncture / Unknown 09/26/2024 7:56 AM EDT 09/26/2024 7:56 AM EDT us Melissa HARTLEY LAB BLOOD ORDERABLES Final Result [facility] [address] [place] [address], * Comprehensive metabolic panel (09/26/2024 7:56 AM EDT) Sodium 142 133 - 145 mmol/L LAB CHEMISTRY METHOD 09/26/2024 12:16 PM [facility] Potassium 4.5 3.5 - 5.5 mmol/L LAB CHEMISTRY METHOD 09/26/2024 12:16 PM [facility] Chloride 109 96 - 110 mmol/L LAB CHEMISTRY METHOD 09/26/2024 12:16 PM [facility] CO2 28 21 - 32 mmol/L LAB CHEMISTRY METHOD 09/26/2024 12:16 PM [facility] Anion Gap 5 3 - 11 LAB CHEMISTRY METHOD 09/26/2024 12:16 PM [facility] Glucose 100 70 - 100 mg/dL LAB CHEMISTRY METHOD 09/26/2024 12:16 PM [facility] BUN 22 5 - 25 mg/dL LAB CHEMISTRY METHOD 09/26/2024 12:16 PM [facility] Creatinine 1.18 0.70 - 1.30 mg/dL LAB CHEMISTRY METHOD 09/26/2024 12:16 PM [facility] eGFR 66 >=60 mL/min/1. 73m2 LAB CHEMISTRY METHOD 09/26/2024 12:16 PM [facility] Comment:Calculation based on the Chronic Kidney Disease Epidemiology Collaboration (CKD-EPI) equation refit without adjustment for race. BUN/Creatinine Ratio 18.6 LAB CHEMISTRY METHOD 09/26/2024 12:16 PM [facility] Calcium 8.9 8.5 - 10.5 mg/dL LAB CHEMISTRY METHOD 09/26/2024 12:16 PM EDT [facility] AST (SGOT) 18 10 - 42 unit/L LAB CHEMISTRY METHOD 09/26/2024 12:16 PM EDT [facility] ALT (SGPT) 32 10 - 60 unit/L LAB CHEMISTRY METHOD 09/26/2024 12:16 PM T [facility] Alkaline Phosphatase 70 42 - 121 unit/L LAB CHEMISTRY METHOD 09/26/2024 12:16 PM EDT [facility] Total Protein 7.0 6.0 - 8.0 g/dL LAB CHEMISTRY METHOD 09/26/2024 12:16 PM EDT [facility] Albumin 3.9 3.2 - 5.0 g/dL LAB CHEMISTRY METHOD 09/26/2024 12:16 PM [facility] Total Bilirubin 0.5 0.0 - 1.4 mg/dL LAB CHEMISTRY METHOD 09/26/2024 12:16 PM EDT [facility] Blood Venous blood specimen / Unknown Venipuncture / Unknown 09/26/2024 7:56 AM EDT 09/26/2024 7:56 AM EDT Melissa HARTLEY LAB BLOOD ORDERABLES Final Result [facility] [address] [place] [address], * Falls Risk Assessment (09/03/2023) Falls Risk Assessment abstracted Historical Provider HEALTH MAINTENANCE Final Result * Depression Screening (09/03/2023) Pathologist [facility] Depression Screening abstracted Historical Provider HEALTH MAINTENANCE Final Result * Colonoscopy (04/12/2022) Colonoscopy no interpreta tion,abstr acted Anatomical Region Laterality Modality Other Historical Provider HEALTH MAINTENANCE Final Result * Hepatitis C Screening (10/15/2002) Hepatitis C Screening abstracted Historical Provider HEALTH MAINTENANCE Final Result from Last 3 Months or Most Recently Relevant to Health Maintenance Insurance [employer] - [place] MEDICARE ADVANTAGE Advance Directives * Full Code - Confirmed (Latest Code Status on File) Date Activated Date Inactivated Comments 10/27/2024 8:43 AM 10/28/2024 2:[address] [facility] was ascertained in the following way: Code status discussion: discussion with patient To update the patient's code status, place a code status order. Do not modify or discontinue any currently active code status orders. * Full Code - Confirmed Date Activated Date Inactivated Comments 10/27/2024 5:21 AM 10/27/2024 8:[address] [facility] was ascertained in the following way: Code status discussion: discussion with patient To update the patient's code status, place a code status order. Do not modify or discontinue any currently active code status orders. 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
--- OUTSIDE RECORDS SUMMARY | 2024-11-27 10:21 | XMS_ITS | Clinical Summary ---
Author Organization [facility] Address [address] [place] [address] Care Team Providers Care Manager Clinic Name Role Phone Rai Negron MD Primary Care Provider [phone] Allergies Active Allergy Reactions Criticality Noted Date [...] 1 - PCV) 2017 Influenza Vaccine (#1) 2024 RSV Adult > 60+ Yrs or Pregn ant (1 - 1-dose 75+ series) 10/07/2027 Hepatitis B Vaccines Aged Out No long er eligible based on patient's age to complete this topic RSV Ped < 20 months Aged Out No longe r eligible based on patient's age to complete this topic Care Teams Manager Clinic Relationship Specialty Start Date End Date Rai Negron MD [address] [place] [address] PCP - General Internal Medicine 05/13/19
--- OUTSIDE RECORDS SUMMARY | 2024-11-27 10:21 | XMS_ITS | Clinical Summary ---
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 Role Phone Unavailable Primary Care Provider Unavailabl e Social History Tobacco Use Types Packs/Day Years Used Date Smoking Tobacco: Never Assessed Sex and Gender Information Value Date Recorded Sex Assigned at Not on file Legal Sex Male 3:50 PM EDT Gender Identity Not on file Sexual Orientation Not on file Plan of Treatment Upcoming Encounters Date Type Department Care Team ([facility] st Contact Info) Description 12/30/2024 10:30 AM EDT [facility] [place] [address] Rai Galo MD [address] [place] [address] Health Maintenance Due Date Last Done Comments Hepatitis C Virus Screening 1950 DTaP/Tdap/Td Vaccines (1 - Tdap) 10/07/1971 Colonoscopy 1997 Pneumococcal Vaccines 50+ (1 of 1 - PCV) 2002 Zoster (Shingles) Vaccine (1 of 2) 2002 COVID-19 Vaccine ( - 2023-2 5 season) 2023 Influenza Vaccine 10/31/2024 RSV Vaccine 60 years and old er and Patients (1 - 1-dose 75+ series) 10/07/2027 Hepatitis B Vaccines Aged Out No long er eligible based on patient's age to complete this topic
== END 2024-11-27 10:43 | disposition home or self-care (01) ==
LOC: HO.HSMS 09:21
PROVIDERS: PCP Internal Medicine; Visit Provider Nurse Practitioner Family
DX: G25.81 Restless legs syndrome (principal); M62.838 Other muscle spasm; G47.50 Parasomnia, unspecified; G72.9 Myopathy, unspecified; G62.9 Polyneuropathy, unspecified
CPT/HCPCS: 99214